=== PATIENT | female | born 1965 | race Caucasian/White ===

== ENCOUNTER → 2016-12-29 | Outpatient (CLI) | payer OTHER ==
--- NOTE | 2017-01-01 07:37 | BD ---
EXAMINATION TYPE: MG DEXA axial skeleton. DATE OF EXAM: 12/29/2016 4:09 PM COMPARISON: NONE CLINICAL HISTORY: Height: 66 Weight: 227.1 FRAX RISK QUESTIONS: Alcohol (3 or more units per day): no Family History (Parent hip fracture): no Glucocorticoids (More than 3mos): no (Ex: prednisone, prednisolone, methylprednisolone, dexamethasone, and hydrocortisone). History of Fracture in Adulthood: no Secondary Osteoporosis: 1. Type 1 Diabetes: no 2. Hyperthyroidism: no 3. Menopause before 45: no 4. Malnutrition: no 5. Chronic liver disease: no Rheumatoid Arthritis: no Current Tobacco Use: no RISK FACTORS HISTORY OF: Surgery to Spine/Hip(right/left)/Wrist (right/left): no When: Other Fractures since Age 48: no Family History of Osteoporosis: no Active: yes Diet low in dairy products/other sources of calcium: yes Postmenopausal woman: Lost more than 2 inches in height since high school: no Frequent falls: no Adrenal Insufficiency: no MEDICATIONS: none Additional History: EXAM MEASUREMENTS: Bone mineral densitometry was performed using the NGRAIN System. Bone mineral density as measured about the Lumbar spine is: ----- L1-L4(G/cm2): 1.206 T Score Values are as follows: ----- L2: -0.8 ----- L3: -0.3 ----- L4: 2.1 ----- L1-L4: 0.2 Bone mineral density has: increased 5.9 % since study of: 06.24.2014 Bone mineral density about the R hip (g/cm2): 0.902 Bone mineral density about the L hip (g/cm2): 0.903 T Score values are as follows: -----R Neck: -1.0 -----L Neck: -1.0 -----R Intertrochanter: -1.0 -----L Intertrochanter: -1.0 Bone mineral density has: decreased-11.2 % since study of: 06.24.2014 IMPRESSION: Major osteoporotic fracture risk: 4.6% Current fracture risk: 0.2% THIS STUDY IS NORMAL. NOTE: T-SCORE=SD OF THE YOUNG ADULT MEAN.
--- NOTE | 2017-01-01 09:36 | MM ---
Reason for exam: screening (asymptomatic). Last mammogram was performed 1 year and 1 month ago. History: Patient is postmenopausal. Family history of breast cancer in sister at age 49. Reductions of both breasts, 2005. Physical Findings: A clinical breast exam by your physician is recommended on an annual basis and results should be correlated with mammographic findings. MG 3D Screening Mammo W/Cad Bilateral CC and MLO view(s) were taken. Prior study comparison: November 17, 2015, bilateral MG 3d screening mammo w/cad. January 19, 2015, right breast MG diagnostic mammo RT w CAD. There are scattered fibroglandular densities. No significant changes when compared with prior studies. ASSESSMENT: Benign, BI-RAD 2 RECOMMENDATION: Routine screening mammogram of both breasts in 1 year.
== END | disposition home or self-care (01) ==
LOC: RADMAMWWP 15:27
PROVIDERS: ATTEND Family Medicine
DX: Z12.31 Encounter for screening mammogram for malignant neoplasm of breast (principal); Z13.820 Encounter for screening for osteoporosis
CPT/HCPCS: 77080; 77063; G0202

== ENCOUNTER 2018-03-28 11:17 | Day surgery (SDC) | payer BC, OTHER ==
[2018-03-26 12:14] VITALS: BMI 40.3
[~2018-03-28 11:17] MED LIST: LACTATED RINGERS 1,000 ML IV SCH
[2018-03-28 11:51] VITALS: RESP 16; TEMP 98.8
[2018-03-28] MEDS ORDERED: LIDOCAINE 1% 20 ML VIAL (10MG/ML) FOR IV START INTRADERMA ONE (11:54)
[2018-03-28] MEDS ORDERED: PROPOFOL 10 MG/ML 20 ML VIAL IV ONE (12:08)
[2018-03-28] MEDS ORDERED: LIDOCAINE 1% INJ 10MG/ML (20 ML MDV) ONE (12:08)
--- NOTE | 2018-03-28 12:30 | P.PCN ---
Date of Procedure: 03/28/18 Procedure(s) Performed: Procedure: Total colonoscopy. Preoperative diagnosis: Screening for neoplasia. Postoperative diagnosis: Exam within normal limits. Preparation: HalfLytely prep. Sedation: Was provided by anesthesia. Brief clinical history: The patient is a 52-year-old female who is scheduled for this evaluation for screening for neoplasia age being her risk factor in addition to family history of colon cancer in her mother and finding of positive occult blood in her stools and recent rectal examination. She had a prior colonoscopy around 10 years ago. At this time, she has no abdominal complaints, bleeding or anemia. Procedure: With the patient on her left lateral decubitus position and after informed consent and adequate sedation, the perianal area was inspected and it did not show any fissures or fistulas. There were no masses felt on digital rectal examination. The Olympus CFQ 160L video colonoscope was then inserted in the rectum in the usual fashion and advanced to the cecum. No polyps or tumors were seen or any obvious diverticular disease. The mucosa appeared healthy. I retroflexed the endoscope in the rectum before the endoscope was withdrawn. Low-grade internal hemorrhoids were noted with no evidence of bleeding. The patient tolerated the procedure well. Plan: The patient was reassured. She will follow up with you as planned and I recommended repeat exam in 5 years.
[2018-03-28 12:54] VITALS: BP 121/82; PULSE 63
--- NOTE | 2018-04-01 15:58 | CDI ---
Outpatient Documentation Clarification Form Date: 04/01/18 CDS/Liquid Yeast Supervisor Name: Lesley Berger Phone: If any questions, call Adriana Becerril Extractions Technologist at [phone] Patient Name: Delicia Ball Admit Date: 03/28/18 Discharge Date: 03/28/18 ATTENTION: The [facility] Coding Staff appreciate your assistance in clarifying documentation. Please respond to the clarification below the line at the bottom and electronically sign. The [facility] Coding staff will review the response and follow-up if needed. Please note: Queries are made part of the Legal Health Record. If you have any questions, please contact the Extractions Technologist. Dear Dr. Lei, Is the occult blood in stool due to internal hemorrhoids, or other cause? Thank you for your kind consideration. MTDD
== END 2018-03-28 13:20 | disposition home or self-care (01) ==
LOC: ORWHC2ENDO 11:17
DX: Z12.11 Encounter for screening for malignant neoplasm of colon (principal); R19.5 Other fecal abnormalities; K64.8 Other hemorrhoids; Z80.0 Family history of malignant neoplasm of digestive organs; I10 Essential (primary) hypertension; K21.9 Gastro-esophageal reflux disease without esophagitis; M19.90 Unspecified osteoarthritis, unspecified site; Z78.0 Asymptomatic menopausal state; E66.9 Obesity, unspecified; Z68.41 Body mass index [BMI] 40.0-44.9, adult; Z79.899 Other long term (current) drug therapy; Z98.51 Tubal ligation status
CPT/HCPCS: J2001; J2704; G0105

== ENCOUNTER → 2022-07-28 | Outpatient (CLI) | payer BC ==
--- NOTE | 2022-08-02 15:58 | MM ---
Reason for Exam: Screening (asymptomatic). Last mammogram was performed 5 year(s) and 7 month(s) ago. Patient History: Menarche at age 12. First Full-Term at age 21. Postmenopausal. 2004, Bilateral Reduction. Sister had breast cancer, age 49. Risk Values: Tatianna 5 year model risk: 2.3%. NCI Lifetime model risk: 13.0%. Prior Study Comparison: 01/19/2015 Right Diagnostic Mammogram, [facility]. 11/17/2015 Bilateral Screening Mammogram, [facility]. 12/29/2016 Bilateral Screening Mammogram, [facility]. Tissue Density: There are scattered fibroglandular densities. Findings: Analyzed By CAD. There is no suspicious group of microcalcifications or new suspicious mass in either breast. Benign-appearing calcifications bilaterally. Right greater than left. Overall Assessment: Benign, BI-RAD 2 Management: Screening Mammogram of both breasts in 1 year. A clinical breast exam by your physician is recommended on an annual basis and results should be correlated with mammographic findings. Electronically signed and approved by: Sourav Avilez DO
== END | disposition home or self-care (01) ==
LOC: RADMAMWWP 08:30
PROVIDERS: ATTEND Family Medicine
DX: Z12.31 Encounter for screening mammogram for malignant neoplasm of breast (principal)
CPT/HCPCS: 77063; 77067

== ENCOUNTER → 2023-10-29 | Outpatient (CLI) | payer BC ==
--- NOTE | 2023-10-30 16:03 | MM ---
Reason for Exam: Screening (asymptomatic). Last mammogram was performed 1 year(s) and 3 month(s) ago. Patient History: Menarche at age 12. First Full-Term at age 21. Postmenopausal. 2004, Bilateral Reduction. Paternal aunt had breast cancer at or over age 50. Sister had breast cancer, age 49. Risk Values: Tatianna 5 year model risk: 2.4%. NCI Lifetime model risk: 12.7%. Prior Study Comparison: 11/17/2015 Bilateral Screening Mammogram, [facility]. 12/29/2016 Bilateral Screening Mammogram, [facility]. 07/28/2022 Bilateral MG 3D screening mammo w/cad, [facility]. Tissue Density: There are scattered fibroglandular densities. Findings: Analyzed By CAD. Pattern appears stable. Scattered benign punctate calcifications are present bilaterally. Benign spherical and coarse calcifications are within the anterior right breast. No significant interval changes are evident No suspicious groups of microcalcifications, spiculated or lobular masses, architectural distortion or other secondary signs of malignancy are mammographically apparent. Overall Assessment: Benign, BI-RAD 2 Management: Screening Mammogram of both breasts in 1 year. A negative mammogram report should not preclude additional follow up of suspicious palpable abnormalities. Patient should continue monthly self breast exam. A clinical breast exam by your physician is recommended on an annual basis and results should be correlated with mammographic findings. Electronically signed and approved by: Han Collins D.O. Radiologis
== END | disposition home or self-care (01) ==
LOC: RADMAMWWP 08:01
PROVIDERS: ATTEND Family Medicine
DX: Z12.31 Encounter for screening mammogram for malignant neoplasm of breast (principal); Z78.0 Asymptomatic menopausal state; Z80.3 Family history of malignant neoplasm of breast
CPT/HCPCS: 77063; 77067

== ENCOUNTER → 2024-02-26 | Outpatient (CLI) | payer BC ==
--- NOTE | 2024-02-26 19:23 | US ---
EXAMINATION TYPE: US transvaginal DATE OF EXAM: 02/26/2024 COMPARISON: 02/08/2015. 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 TECHNIQUE: Transvaginal (TV). Date of LMP: SALVAGE DETERMINER, EXAM MEASUREMENTS: Uterus: 6.9 x 4.9 x 4.2 cm Endometrial Stripe: 2.0 cm Left Ovary: 1.6 x 1.2 x 1.0 cm 1. Uterus: Anteverted Heterogenous. 2. Endometrium: Thickened and heterogenous. Possible vascular stalk with lesion = 1.5 x 1.8 x 1.5 c m 3. Right Ovary: Obscured by overlying bowel gas 4. Left Ovary: Anechoic lesion = 1.0 cm 5. Bilateral Adnexa: no free fluid 6. Posterior cul-de-sac: no free fluid IMPRESSION: Thickened endometrium more than would be expected for a patient of postmenopausal status. Decreased v isualization recommended to exclude endometrial carcinoma.
== END | disposition home or self-care (01) ==
LOC: RADUSWWP 15:39
PROVIDERS: ATTEND Family Medicine
DX: R93.89 Abnormal findings on diagnostic imaging of other specified body structures (principal); N95.0 Postmenopausal bleeding; Z78.0 Asymptomatic menopausal state
CPT/HCPCS: 76830

== ENCOUNTER → 2024-03-28 | Outpatient (CLI) | payer BC ==
[2024-03-29 02:40] LABS: Basophils # (A) 0.06 X 10*3/uL (0.00-0.10); Basophils % (A) 0.7 %; Eosinophils % (A) 1.2 %; HCT 42.9 % (37.2-46.3); HGB 13.5 g/dL (12.0-15.0); Lymphocytes # (A) 2.91 X 10*3/uL (0.90-5.00); Lymphocytes % (A) 34.8 %; MCH 29.3 pg (27.0-32.0); MCHC 31.5 g/dL (32.0-37.0); MCV 93.3 FL (80.0-97.0); Mean Platelet Volume 10.6 FL (9.5-12.2); Monocytes # (A) 0.53 X 10*3/uL (0.20-1.00); Monocytes % (A) 6.3 %; NRBC Per 100 WBC 0 X 10*3/uL (0.00-0.01); Neutrophils # (A) 4.74 X 10*3/uL (1.80-7.70); Neutrophils % (A) 56.8 %; Platelet Count 379 X 10*3/uL (140-440); RDW 13.5 % (11.5-14.5); WBC 8.36 X 10*3/uL (4.50-10.00)
== END | disposition home or self-care (01) ==
LOC: LABWHC1 15:52
PROVIDERS: ATTEND Obstetrics & Gynecology
DX: Z01.818 Encounter for other preprocedural examination (principal); R94.31 Abnormal electrocardiogram [ECG] [EKG]; N85.01 Benign endometrial hyperplasia; N95.0 Postmenopausal bleeding; I10 Essential (primary) hypertension
CPT/HCPCS: 36415; 85025; 93005

== ENCOUNTER 2024-04-25 06:02 | Day surgery (SDC) | payer BC ==
--- NOTE | 2024-04-24 09:59 | P.HPIHPCON ---
History of Present Illness H&P Date: 04/24/24 Chief Complaint: Postmenopausal bleeding Ms. Ball is a 58 year old who presents with post-menopausal bleeding. The bleeding began 3-4 months ago and at times can be heavy requiring up to 4 pads per day. Pelvic US in February 2024 showed an anteverted uterus 6.9 x 4.9 x 4.2 cm with a thickened endometrial stripe measuring 20mm. A vascular polyp 1.8cm was noted. Consent for Procedure: I have explained the operation/procedure to the patient, including the risks, benefits, side effects, alternative therapies (including not receiving the proposed treatment or service), the likelihood of the patient achieving his/her goals, and potential recuperation problems for the procedure/sedation/analgesia, as well as any blood products, if indicated. I also explained to the patient the risks, benefits and side effects of the alternatives, as well as the risks related to not receiving the proposed procedure, care, treatment, or services. Past Medical History Past Medical History: GERD/Reflux, Hypertension, Osteoarthritis (OA) Additional Past Medical History / Comment(s): ARTHRITIS BACK PAIN, HEMORRHOIDS. History of Any Multi-Drug Resistant Organisms: None Reported Past Surgical History: Breast Surgery, Tubal Ligation Additional Past Surgical History / Comment(s): HEEL SPUR, BREAST REDUCTION. reji cataracts removed Past Anesthesia/Blood Transfusion Reactions: No Reported Reaction Smoking Status: Never smoker - Past Family History Mother Family Medical History: Cancer Additional Family Medical History / Comment(s): FROM COLON CANCER Father Family Medical History: Cancer Additional Family Medical History / Comment(s): LUNG CANCER Sister(s) Family Medical History: Cancer Additional Family Medical History / Comment(s): BREAST CANCER Medications and Allergies Home Medications Medication Instructions Recorded Confirmed Type Fexofenadine HCl [Renetta Allergy] 180 mg PO DAILY PRN 04/22/24 04/22/24 History Ibuprofen (Unk) 1 - 2 tab PO Q6H PRN 04/22/24 04/22/24 History Metoprolol Succinate (ER) [Toprol 25 mg PO BID 04/22/24 04/22/24 History Xl] [place] 3 (Unk) 1 tab PO DAILY 04/22/24 04/22/24 History Vit B12 (Unk) 1 tab PO DAILY 04/22/24 04/22/24 History Allergies Allergy/AdvReac Type Severity Reaction Status Date / Time No Known Allergies Allergy Verified 04/22/24 14:01 Surgical - Exam Focused physical exam is performed. This is a pleasant, healthy-appearing female. Breathing is non-labored. Abdomen is soft, non-tender. Extremities are non-edematous and non-tender. Assessment and Plan Assessment: 58 year old with postmenopausal bleeding and suspected polyp on US presenting for surgical management Plan: Risks, benefits, and alternatives to Hysteroscopy D&C, Polypectomy with Myosure device are discussed with the patient including risk of bleeding, infection, uterine perforation, and damage to surrounding structures. The patient understands these risks and desires to proceed with surgery as discussed. All questions answered. Time with Patient: Less than 30
[~2024-04-25 06:02] MED LIST changes: +DEXAMETHASONE SOD PHOSPHATE 4 MG/ML 1 ML VIAL IV ONE; -LACTATED RINGERS 1,000 ML IV SCH; +LIDOCAINE 1% (10MG/ML) FOR IV START INTRADERMA PRN; +Pre Op ABX Message 1 EACH MISC MISCELLANE ONE
[2024-04-25] MEDS: IV FLUID CONTINUATION 1,000 ML IV ONE (06:38)
[2024-04-25] MEDS: LACTATED RINGERS 1,000 ML IV SCH (06:42)
[2024-04-25] MEDS ORDERED: HYDROmorphone 0.5 MG/0.5 ML SYRINGE IVP PRN (07:00)
[2024-04-25] MEDS ORDERED: fentaNYL (PF) 50 MCG/ML 2 ML AMP IV PRN (07:00)
[2024-04-25] MEDS ORDERED: MIDAZOLAM 2 MG/2 ML VIAL IV PRN (07:00)
[2024-04-25] MEDS: ONDANSETRON 4 MG/2 ML VIAL IVP STA (07:07)
[2024-04-25] MEDS: DEXAMETHASONE SOD PHOSPHATE 4 MG/ML 1 ML VIAL IV ONE (07:07)
[2024-04-25] MEDS ORDERED: PROPOFOL 10 MG/ML 20 ML VIAL IV ONE (07:25)
[2024-04-25] MEDS ORDERED: PHENYLEPHRINE-0.9% NACL SYG 1,000 MCG/10 ML SYRINGE ONE (07:25)
[2024-04-25] MEDS ORDERED: GLYCOPYRROLATE 0.2 MG/ML 2 ML VIAL ONE (07:25)
[2024-04-25] MEDS ORDERED: LIDOCAINE 1% INJ 10MG/ML (20 ML MDV) ONE (07:25)
[2024-04-25] MEDS ORDERED: MIDAZOLAM 2 MG/2 ML VIAL ONE (07:25)
[2024-04-25] MEDS ORDERED: KETOROLAC 15 MG/ML 1 ML VIAL ONE (07:25)
[2024-04-25] MEDS ORDERED: fentaNYL (PF) 50 MCG/ML 2 ML AMP ONE (07:25)
[2024-04-25] MEDS ORDERED: SUCCINYLCHOLINE CHLORIDE 200 MG/10 ML VIAL IV ONE (07:25)
--- NOTE | 2024-04-25 08:15 | P.OP ---
Date of Procedure: 04/25/24 Preoperative Diagnosis: 1. Postmenopausal bleeding 2. Thickened endometrium on ultrasound Postoperative Diagnosis: Same Procedure(s) Performed: Hysteroscopy D&C, Myosure Implants: None Anesthesia: SANTHOSHA Surgeon: Rona Santiago Estimated Blood Loss (ml): 5 IV fluids (ml): 500 Urine output (ml): 25 Pathology: other (endometrial curettings) Condition: stable Disposition: same day Indications for Procedure: 58 year old with postmenopausal bleeding and thickened, vascular endometrium to 20mm on US. Risks, benefits, and alternatives to Hysteroscopy D&C, Polypectomy with Myosure device are discussed with the patient including risk of bleeding, infection, uterine perforation, and damage to surrounding structures. The patient understands these risks and desires to proceed with surgery as discussed. All questions answered. Operative Findings: Diffusely, abnormally thickened and vascular endometrium suspicious for endometrial cancer. [place] unable to be visualized. Description of Procedure: Patient is brought to the operating suite and placed in the dorsal lithotomy position. The cervix perineum and lower abdomen are prepped and draped in the usual sterile fashion. Examination under anesthesia reveals an anteverted uterus. Adnexa are negative bilaterally. The bladder is drained for approximately 25 mL of clear yellow urine. The anterior lip of the cervix is grasped with a double toothed tenaculum after the weighted speculum is placed into the vagina. The uterus sounds to a depth of 10 cm in the anteverted position. The Hanks dilators are placed and the cervix was dilated to 12 mm. The hysteroscope was then introduced and with saline infusion the cavity is distended. Abnormally thickened and vascular endometrium is noted diffusely throughout the cavitiy. The MyoSure reach is fed through the hysteroscopy and used to take a global sampling of this tissue under direct visualization. The hysteroscopy is then removed. All sponge needle and instrument counts are correct. Instrumentation is removed from the vagina and the patient is brought to the recovery room in stable condition. Toradol is given prior to leaving the operative suite.Patient will follow up with me in the office in 2 weeks. Verbal and written instructions are provided.
[2024-04-25 08:23] VITALS: TEMP 97
[2024-04-25 09:48] VITALS: BP 133/65; PULSE 61; RESP 18
== END 2024-04-25 10:32 | disposition home or self-care (01) ==
LOC: OR 06:02
PROVIDERS: ATTEND Obstetrics & Gynecology
DX: N85.00 Endometrial hyperplasia, unspecified (principal); I96 Gangrene, not elsewhere classified; M19.90 Unspecified osteoarthritis, unspecified site; K21.9 Gastro-esophageal reflux disease without esophagitis; I10 Essential (primary) hypertension; Z80.0 Family history of malignant neoplasm of digestive organs; Z87.19 Personal history of other diseases of the digestive system; Z98.51 Tubal ligation status; Z79.899 Other long term (current) drug therapy
CPT/HCPCS: 88305; 58558; J2250; J0330; J1100; J2405; J2001; J3010; J1885; J2704; J2371

== ENCOUNTER → 2024-05-14 | Outpatient (CLI) | payer BC ==
--- NOTE | 2024-05-14 12:14 | CT ---
EXAMINATION TYPE: CT ChestAbdPelvis w con DATE OF EXAM: 05/14/2024 COMPARISON: None HISTORY: 58-year-old female C5 4.1 enlarged uterus, bleeding, cramping since 01/25/2024 TECHNIQUE: Contiguous axial scanning of the chest, abdomen, and pelvis performed with IV Contrast, pa tient injected with 100 mL of Isovue 300. Delayed images through the kidneys were obtained. Coronal/s agittal reconstructions performed. CT DLP: 1936 mGycm Automated exposure control for dose reduction was used. FINDINGS: Chest: Heart borderline in size without pericardial effusion. Borderline ectatic ascending aorta 3.5 cm. Conventional arch vessel branching anatomy. Ectatic upper descending thoracic aorta 3.2 cm. Borderline to mildly enlarged caliber main right and left pulmonary arteries up to 2.7 cm may reflect underlying pulmonary arterial hypertension. No thoracic lymphadenopathy by CT size criteria. Hazy dependent atelectasis in the lungs. No consolidation or pleural effusion. Mild diffuse bronchial wall thickening could reflect bronchitis or asthma. ABDOMEN: Tiny hiatal hernia. Liver borderline enlarged at 17.4 cm. There may be mild fatty infiltration. No biliary ductal dilatat ion. Portal venous system is patent. No focal liver lesion. Gallbladder, adrenal glands, right kidney, spleen, and pancreas within normal limits. There is a 1.4 cm cortical cyst anterior left kidney. And circumaortic left renal vein. No dilated small bowel, free fluid, or free air. Small retroperitoneal nodes measuring up to 8 mm are nonspecific, probably reactive. No mesenteric adenopathy. Mild stool burden. Normal appendix. No pericolonic inflammatory change. Pelvis: Bladder urine distended. Uterus anteverted. . Rounded heterogeneous mass centered within the uterus measuring up to 6.7 cm. Ovaries are visualized. Prominent but nonenlarged 9 mm right external iliac chain lymph node, axial image 95. Mildly enlarged 1.2 cm lymph node left internal iliac chain, axial image 98. Bones: Mild degenerative change of the hips. Moderate degenerative disc disease and facet arthropathy lower lumbar spine especially L4-L5. Some bridging anterior endplate spondylosis midthoracic spine. No oss eous destructive process. IMPRESSION: 1. LARGE HETEROGENEOUS MASS CENTERED WITHIN THE UTERINE CAVITY MEASURING UP TO 6.7 CM suggestive of e ndometrial carcinoma. 2. Nonspecific 1.2 cm, mildly enlarged left internal iliac chain lymph node. Equivocal between a reac tive versus metastatic node. Otherwise, no suspicious lymphadenopathy or evidence for metastatic dise ase elsewhere on the scan.
== END | disposition home or self-care (01) ==
LOC: RADCTMAIN 09:38
PROVIDERS: ATTEND Obstetrics & Gynecology
DX: C54.1 Malignant neoplasm of endometrium (principal); R59.9 Enlarged lymph nodes, unspecified
CPT/HCPCS: 71260; 74177; Q9967

== ENCOUNTER 2024-06-25 18:50 | Emergency (ER) | payer BC ==
[~2024-06-25 18:50] MED LIST changes: -DEXAMETHASONE SOD PHOSPHATE 4 MG/ML 1 ML VIAL IV ONE; -LIDOCAINE 1% (10MG/ML) FOR IV START INTRADERMA PRN; -Pre Op ABX Message 1 EACH MISC MISCELLANE ONE; +SODIUM CHLORIDE 0.9% 1,000 ML BAG ONE
[2024-06-25] MEDS ORDERED: HYDROmorphone 1 MG/ML 1 ML SYRINGE ONE (20:59)
[2024-06-25] MEDS ORDERED: ONDANSETRON 4 MG/2 ML VIAL ONE (22:34)
== END 2024-06-25 22:29 | disposition home or self-care (01) ==
LOC: EC 18:50
DX: N93.9 Abnormal uterine and vaginal bleeding, unspecified (principal); D64.9 Anemia, unspecified
CPT/HCPCS: 86900; 86901; 80053; 83735; 84100; 85025; 85610; 85730; 86850; 99284; J2405; J1170

== ENCOUNTER 2024-07-20 06:42 | Inpatient (IN) | payer BC ==
[2024-07-20 07:24] LABS: Anisocytosis Slight; Basophils # (A) 0.1 k/uL (0-0.2); Basophils % (A) 0 %; Eosinophils % (A) 0 %; HCT 35.2 % (34.0-46.0); HGB 11.4 gm/dL (11.4-16.0); Hypochromasia Moderate; Lymphocytes # (A) 0.9 k/uL (1.0-4.8); Lymphocytes % (A) 7 %; MCH 29.3 pg (25.0-35.0); MCHC 32.4 g/dL (31.0-37.0); MCV 90.4 fL (80.0-100.0); Monocytes # (A) 0.5 k/uL (0-1.0); Monocytes % (A) 4 %; Neutrophils # (A) 11.4 k/uL (1.3-7.7); Neutrophils % (A) 87 %; Platelet Count 450 k/uL (150-450); RBC 3.89 m/uL (3.80-5.40); RDW 17.7 % (11.5-15.5)
[2024-07-20] MEDS: SODIUM CHLORIDE 0.9% 1,000 ML IV STA ×2 (07:31→08:36)
[2024-07-20] MEDS: DILTIAZEM DRIP BOLUS FROM BAG 1 MG SOLN IV ONE (07:32)
[2024-07-20] MEDS: DILTIAZEM 125 MG in SODIUM CHLORIDE 0.9% 100 ML IV SCH (07:35)
[2024-07-20 07:36] LABS: ALT 19 U/L (4-34); AST 43 U/L (14-36); African American GFR (CKD) 58 (>60 ml/min/1.73 sqM); Albumin 3.2 g/dL (3.5-5.0); Alkaline Phosphatase 106 U/L (38-126); Anion Gap 7 mmol/L; Blood Urea Nitrogen 25 mg/dL (7-17); Calcium 9.1 mg/dL (8.4-10.2); Carbon Dioxide 27 mmol/L (22-30); Chloride 94 mmol/L (98-107); Glucose 165 mg/dL (74-99); Magnesium 1.9 mg/dL (1.6-2.3); Non-African American GFR(CKD) 50 (>60 ml/min/1.73 sqM); Potassium 4.7 mmol/L (3.5-5.1); Sodium 128 mmol/L (137-145); Total Bilirubin 0.5 mg/dL (0.2-1.3); Total Protein 5.8 g/dL (6.3-8.2)
--- NOTE | 2024-07-20 07:38 | ED ---
General Adult HPI - General Chief complaint: Shortness of Breath Stated complaint: SOB Time Seen by Provider: 07/20/24 07:09 Source: patient, EMS Mode of arrival: EMS - History of Present Illness Initial comments: Dictation was produced using [employer] dictation software. please excuse any grammatical, word or spelling errors. Chief Complaint: 58-year-old female presents to the emergency department with generalized weakness History of Present Illness: Patient 58-year-old female presents to the emergency department generalized weakness. Patient has active uterine cancer being treated with chemotherapy. She last had chemotherapy 2 weeks ago. Patient was recently diagnosed with pulmonary embolism hard due to bleeding issues she was taken off anticoagulation medication and IVC filter was placed. She had been admitted to our facility along with [facility] in the recent past. Denies any cough. She does feel short of breath. Patient denies any history of A-fib. Denies any pain complaints. Denies any constitutional symptoms. States that she is feeling okay last night. The ROS documented in this emergency department record has been reviewed and confirmed by me. Those systems with pertinent positive or negative responses have been documented in the HPI. All other systems are other negative and/or noncontributory. - Related Data Home Medications Medication Instructions Recorded Confirmed Acetaminophen Tab [Tylenol Tab] 500 mg PO Q6H PRN 07/20/24 07/20/24 HYDROmorphone [Dilaudid] 4 mg PO Q4H PRN 07/20/24 07/20/24 Metoclopramide [Reglan] 10 mg PO TID 07/20/24 07/20/24 Metoprolol Succinate (ER) [Toprol 50 mg PO DAILY 07/20/24 07/20/24 Xl] Morphine Sulfate ER [Ms Contin] 30 mg PO Q12HR 07/20/24 07/20/24 Ondansetron [Zofran] 4 mg PO HS PRN 07/20/24 07/20/24 Ondansetron [Zofran] 4 mg PO TID 07/20/24 07/20/24 Pantoprazole [Protonix] 40 mg PO DAILY 07/20/24 07/20/24 Sennosides [Senokot] 17.2 mg PO HS 07/20/24 07/20/24 dronabinoL [Marinol] 5 mg PO BID 07/20/24 07/20/24 polyethylene glycoL 3350 [Miralax] 17 gm PO BID 07/20/24 07/20/24 Allergies Allergy/AdvReac Type Severity Reaction Status Date / Time No Known Allergies Allergy Verified 07/20/24 10:14 Review of Systems ROS Statement: Those systems with pertinent positive or pertinent negative responses have been documented in the HPI. ROS Other: All systems not noted in ROS Statement are negative. Past Medical History Past Medical History: GERD/Reflux, Hypertension, Osteoarthritis (OA) Additional Past Medical History / Comment(s): ARTHRITIS BACK PAIN, HEMORRHOIDS. History of Any Multi-Drug Resistant Organisms: None Reported Past Surgical History: Tubal Ligation Additional Past Surgical History / Comment(s): HEEL SPUR, BREAST REDUCTION. Past Anesthesia/Blood Transfusion Reactions: No Reported Reaction Past Psychological History: No Psychological Hx Reported Smoking Status: Never smoker Past Alcohol Use History: None Reported Past Drug Use History: None Reported - Past Family History Mother Family Medical History: Cancer Additional Family Medical History / Comment(s): FROM COLON CANCER Father Family Medical History: Cancer Additional Family Medical History / Comment(s): LUNG CANCER Sister(s) Family Medical History: Cancer Additional Family Medical History / Comment(s): BREAST CANCER General Exam - General Exam Comments Initial Comments: PHYSICAL EXAM: General Impression: Alert and oriented x3, not in acute distress HEENT: Normocephalic atraumatic, extra-ocular movements intact, pupils equal and reactive to light bilaterally, mucous membranes moist. Cardiovascular: Heart regular rate and rhythm Chest: Able to complete full sentences, no retractions, no tachypnea Abdomen: abdomen soft, non-tender, non-distended, no organomegaly Musculoskeletal: Pulses present and equal in all extremities, no peripheral edema Motor: no focal deficits noted Neurological: CN II-XII grossly intact, no focal motor or sensory deficits noted Skin: Intact with no visualized rashes Psych: Normal affect and mood Course Vital Signs 07/20/24 07/20/24 07/20/24 06:43 07:05 07:25 Temperature 97.7 F 97.6 F Pulse Rate 150 H 172 H 140 H Respiratory 19 18 Rate Blood Pressure 107/62 79/53 110/75 O2 Sat by Pulse 93 L 99 Oximetry 07/20/24 07/20/24 07/20/24 07:30 07:35 07:40 Temperature Pulse Rate 135 H 128 H Respiratory 18 20 Rate Blood Pressure 100/77 104/70 99/75 O2 Sat by Pulse 99 98 Oximetry 07/20/24 07/20/24 07/20/24 08:01 08:40 09:20 Temperature Pulse Rate 121 H 120 H 115 H Respiratory 16 18 18 Rate Blood Pressure 115/83 132/91 120/91 O2 Sat by Pulse 99 100 100 Oximetry 07/20/24 07/20/24 07/20/24 09:34 09:50 10:03 Temperature 98.3 F Pulse Rate 114 H 89 89 Respiratory 18 16 Rate Blood Pressure 127/94 124/88 O2 Sat by Pulse 100 99 Oximetry Medical Decision Making - Medical Decision Making Was pt. sent in by a medical professional or institution (, PA, PEER FINANCIAL COUNSELOR, urgent care, hospital, or care home...) When possible be specific @ -No Did you speak to anyone other than the patient for history (EMS, parent, family, police, friend...)? What history was obtained from this source @ -No Did you review nursing and triage notes (agree or disagree)? Why? @ -I reviewed and agree with nursing and triage notes Were old charts reviewed (outside hosp., previous admission, EMS record, old EKG, old radiological studies, urgent care reports/EKG's, care home records)? Report findings @ -Charting was reviewed show that in April 2024 patient had hysteroscopy Differential Diagnosis (chest pain, altered mental status, abdominal pain women, abdominal pain men, vaginal bleeding, musculoskeletal, weakness, fever, dyspnea, syncope, headache, dizziness, GI bleed, back pain, seizure, CVA, palpatations, mental health)? @ -Differential Weakness: Hypoglycemia, shock, sepsis, hyponatremia, anemia, infection, [place], ETOH, adverse medicine reaction, overdose, stroke, this is not meant to be an all-inclusive list. EKG interpreted by me (3pts min.). @ -As above. EKG suspicious for new onset A-fib X-rays interpreted by me (1pt min.). @ -Chest x-ray is nonacute CT interpreted by me (1pt min.). @ -None done U/S interpreted by me (1pt. min.). @ -None done What testing was considered but not performed or refused? (CT, X-rays, U/S, labs)? Why? @ -None What meds were considered but not given or refused? Why? @ -None Was smoking cessation discussed for >3mins.? @ -No Were there social determinants of health that impacted care today? How? (H omelessness, low income, unemployed, alcoholism, drug addiction, transportation, low edu. Level, literacy, decrease access to med. care, long term, rehab)? @ -None Was there de-escalation of care discussed even if they declined (Discuss DNR or withdrawal of care, Hospice)? DNR status @ -No What co-morbidities impacted this encounter? (DM, HTN, Smoking, COPD, CAD, Cancer, CVA, ARF, Chemo, Hep., AIDS, mental health diagnosis, sleep apnea, morbid obesity)? @ -Bleeding disorder, history of cancer Was patient admitted / discharged? Hospital course, mention meds given and route, prescriptions, significant lab abnormalities, going to OR and other pertinent info. @ -58-year-old female presents to the emergency department for chief complaint of shortness of breath weakness. Patient reports that she is currently being treated for pulmonary embolism. She had complications with bleeding disorder an d was taken off anticoagulation medications and IVC filter was placed. Vital signs upon arrival shows tachycardia. Initial court recording monitor showed irregular tachycardic rate. Suspicious for A-fib with RVR. Patient also had borderline low blood pressures. Patient given IV fluids and started on low-dose exam. Evaluation obtained. CBC, coag panel is unremarkable. Metabolic panel shows send 128 with elevated renal function lactic acidosis 2.7. Patient clinical presentation suspicious for dehydration. Patient given 2 L of normal saline with significant improvement of blood pressure along with heart rate. Patient's court recording monitor reviewed at 10:21 AM patient found to be in normal sinus rhythm with normal blood pressures. Reevaluated bedside 10:22 AM found to be in stable condition. Patient states she feels better after IV fluids. Patient will be admitted with consultation to cardiology. Case discussed with hospitalist for admission Did you discuss the management of the patient with other professionals (professionals i.e. , PA, PEER FINANCIAL COUNSELOR, lab, RT, psych nurse, professor of social work, phosphorus processing supervisor, teacher, strike operations officer, senior case manager)? Give summary @ -see above Was critical care preformed (if so, how long)? @ -Yes, 77 minutes for magement of hypotension and new onset A-fib with RVR Undiagnosed new problem with uncertain prognosis? @ -No Drug Therapy requiring intensive monitoring for toxicity (Heparin, Nitro, Insulin, Cardizem)? @ -No Were any procedures done? @ -No Diagnosis/symptom? Acute, or Chronic, or Acute on Chronic? Uncomplicated (without systemic symptoms) or Complicated (systemic symptoms)? @ -Dehydration complicated by tachydysrhythmia Side effects of treatment? @ -No Exacerbation, Progression, or Severe Exacerbation? @ -No Poses a threat to life or bodily function? How? (Chest pain, [place], [place], pneumonia, PE, COPD, DKA, ARF, appy, cholecystitis, CVA, Diverticulitis, Homicidal, Suicidal, threat to staff... and all critical care pts) @ -yes - Lab Data Result diagrams: 07/20/24 07:03 07/20/24 07:03 Lab Results 07/20/24 07/20/24 07/20/24 Range/Units 07:03 07:03 07:03 WBC 13.0 H (3.8-10.6) k/uL RBC 3.89 (3.80-5.40) m/uL Hgb 11.4 (11.4-16.0) gm/dL Hct 35.2 (34.0-46.0) % MCV 90.4 (80.0-100.0) fL MCH 29.3 (25.0-35.0) pg MCHC 32.4 (31.0-37.0) g/dL RDW 17.7 H (11.5-15.5) % Plt Count 450 (150-450) k/uL MPV 8.0 Neutrophils % 87 % Lymphocytes % 7 % Monocytes % 4 % Eosinophils % 0 % Basophils % 0 % Neutrophils # 11.4 H (1.3-7.7) k/uL Lymphocytes # 0.9 L (1.0-4.8) k/uL Monocytes # 0.5 (0-1.0) k/uL Eosinophils # 0.0 (0-0.7) k/uL Basophils # 0.1 (0-0.2) k/uL Hypochromasia Moderate Anisocytosis Slight PT 11.7 (10.0-12.5) sec INR 1.1 (<1.2) APTT 21.8 L (22.0-30.0) sec Sodium 128 L (137-145) mmol/L Potassium 4.7 (3.5-5.1) mmol/L Chloride 94 L (98-107) mmol/L Carbon Dioxide 27 (22-30) mmol/L Anion Gap 7 mmol/L BUN 25 H (7-17) mg/dL Creatinine 1.18 H (0.52-1.04) mg/dL Est GFR (CKD-EPI)AfAm 58 (>60 ml/min/1.73 sqM) Est GFR (CKD-EPI)NonAf 50 (>60 ml/min/1.73 sqM) Glucose 165 H (74-99) mg/dL Plasma Lactic Acid Rodrigo (0.7-2.0) mmol/L Calcium 9.1 (8.4-10.2) mg/dL Magnesium 1.9 (1.6-2.3) mg/dL Total Bilirubin 0.5 (0.2-1.3) mg/dL AST 43 H (14-36) U/L ALT 19 (4-34) U/L Alkaline Phosphatase 106 (38-126) U/L Troponin I (0.000-0.034) ng/mL Total Protein 5.8 L (6.3-8.2) g/dL Albumin 3.2 L (3.5-5.0) g/dL TSH 5.270 H (0.465-4.680) mIU/L 07/20/24 07/20/24 Range/Units 07:03 07:59 WBC (3.8-10.6) k/uL RBC (3.80-5.40) m/uL Hgb (11.4-16.0) gm/dL Hct (34.0-46.0) % MCV (80.0-100.0) fL MCH (25.0-35.0) pg MCHC (31.0-37.0) g/dL RDW (11.5-15.5) % Plt Count (150-450) k/uL MPV Neutrophils % % Lymphocytes % % Monocytes % % Eosinophils % % Basophils % % Neutrophils # (1.3-7.7) k/uL Lymphocytes # (1.0-4.8) k/uL Monocytes # (0-1.0) k/uL Eosinophils # (0-0.7) k/uL Basophils # (0-0.2) k/uL Hypochromasia Anisocytosis PT (10.0-12.5) sec INR (<1.2) APTT (22.0-30.0) sec Sodium (137-145) mmol/L Potassium (3.5-5.1) mmol/L Chloride (98-107) mmol/L Carbon Dioxide (22-30) mmol/L Anion Gap mmol/L BUN (7-17) mg/dL Creatinine (0.52-1.04) mg/dL Est GFR (CKD-EPI)AfAm (>60 ml/min/1.73 sqM) Est GFR (CKD-EPI)NonAf (>60 ml/min/1.73 sqM) Glucose (74-99) mg/dL Plasma Lactic Acid Rodrigo 2.7 H* (0.7-2.0) mmol/L Calcium (8.4-10.2) mg/dL Magnesium (1.6-2.3) mg/dL Total Bilirubin (0.2-1.3) mg/dL AST (14-36) U/L ALT (4-34) U/L Alkaline Phosphatase (38-126) U/L Troponin I <0.012 (0.000-0.034) ng/mL Total Protein (6.3-8.2) g/dL Albumin (3.5-5.0) g/dL TSH (0.465-4.680) mIU/L Disposition Clinical Impression: Dehydration Disposition: ADMITTED IP TO THIS HOSP Condition: Fair Referrals: Marline Jim DO [Primary Care Provider] - 1-2 days Decision Time: 10:23
--- NOTE | 2024-07-20 07:38 | XR ---
EXAMINATION TYPE: XR chest 2V DATE OF EXAM: 07/20/2024 COMPARISON: None INDICATION: Dysrhythmia, short of breath TECHNIQUE: Frontal and lateral views of the chest are obtained. FINDINGS: The heart size is normal. The pulmonary vasculature is normal. Linear opacities in the left midlung. Correlate for atelectasis. Small posterior pleural effusions ar e present.. IMPRESSION: 1. Small linear opacity left lung base. Correlate for atelectasis or early pneumonia. 2. Small posterior pleural effusions
[2024-07-20 07:45] LABS: INR 1.1 (<1.2); Partial Thromboplastin Time 21.8 sec (22.0-30.0); Prothrombin Time 11.7 sec (10.0-12.5)
[2024-07-20] MEDS: MORPHINE SULFATE 4 MG/ML SYRINGE IV STA (09:35)
[2024-07-20] MEDS ORDERED: NALOXONE 0.4 MG/ML 1 ML VIAL IV PRN (10:17)
[2024-07-20] MEDS: SODIUM CHLORIDE 0.9% 1,000 ML IV SCH (10:24)
[2024-07-20] MEDS ORDERED: ACETAMINOPHEN TAB 500 MG TAB PO PRN (14:34)
[2024-07-20] MEDS ORDERED: HYDROmorphone 2 MG TAB PO PRN (15:25)
[2024-07-20] MEDS: METOPROLOL SUCCINATE (ER) 50 MG TAB.ER.24H PO SCH (16:02)
[2024-07-20] MEDS: MORPHINE SULFATE ER 30 MG TABLET PO SCH (16:09)
[2024-07-20] MEDS: droNABinol 2.5 MG CAP PO SCH (20:05)
[2024-07-20] MEDS: SENNOSIDES 8.6 MG TAB PO SCH (20:05)
[2024-07-20] MEDS ORDERED: MORPHINE SULFATE ER 30 MG TABLET PO SCH (21:00)
--- NOTE | 2024-07-20 21:49 | P.HPIM ---
History of Present Illness H&P Date: 07/20/24 Chief Complaint: Generalized weakness Patient is a 58-year-old female with a past medical history of uterine cancer currently undergoing chemotherapy. 3 weeks for past 9 weeks., Hypertension, GERD and osteoarthritis presents to ER with complaints of generalized weakness and shortness of breath started this morning. Patient was recently diagnosed with pulmonary embolism. Due to vaginal bleeding patient underwent radiation therapy. Patient was not on anticoagulation due to bleeding and is status post IVC filter placement at [facility]. Otherwise denied any complaints of chest pain. No nausea vomiting. No dizziness or lightheadedness. Denied any palpitations. Apparently patient has not been having much appetite and was placed on Marinol. Yesterday she also took Pedialyte due to dehydration. Denied any fever or chills. No cough or sputum production. In the ER EKG showed atrial fibrillation/flutter with rapid ventricular response and heart rate went up to 150s. Chest x-ray showed small linear opacity left lung base. Correlate for atelectasis or early pneumonia. Small posterior pleural effusions. Laboratory data showed WBC 13.0 hemoglobin 11.4 and platelets 450 sodium 128 potassium 4.7 chloride 94 bicarb is 27 BUN 25 and creatinine 1.18 and blood sugar 165 lactic acid 2.7 AST 43 ALT 19 alk phos 106 and troponin x 1 negative albumin 3.2 TSH 5.27 and free T4 level is 1.98. Patient was started on Cardizem drip in the ER. Review of Systems Constitutional: Patient denies any fever or chills . Generalized weakness, fatigue and loss of appetite Abdomen: Patient denied nausea vomiting and diarrhea and abdominal pain. Cardiovascular: Patient denies any chest pain. Patient does have short of breath no palpitations. Positive for leg swelling Respiratory: patient denied any cough or sputum production. Positive for shortness of breath Neurologic: Patient denied any numbness or tingling. no headache. Musculoskeletal: Patient denies any complaints of joint swelling or deformity. Skin: Negative Psychiatric: Negative Endocrine: No heat or cold intolerance. No recent weight gain. Genitourinary: No dysuria or hematuria. All other 14 point ROS negative except the above Past Medical History Past Medical History: GERD/Reflux, Hypertension, Osteoarthritis (OA) Additional Past Medical History / Comment(s): ARTHRITIS BACK PAIN, HEMORRHOIDS. History of Any Multi-Drug Resistant Organisms: None Reported Past Surgical History: Tubal Ligation Additional Past Surgical History / Comment(s): HEEL SPUR, BREAST REDUCTION. Past Anesthesia/Blood Transfusion Reactions: No Reported Reaction Past Psychological History: No Psychological Hx Reported Smoking Status: Never smoker Past Alcohol Use History: None Reported Past Drug Use History: None Reported - Past Family History Mother Family Medical History: Cancer Additional Family Medical History / Comment(s): FROM COLON CANCER Father Family Medical History: Cancer Additional Family Medical History / Comment(s): LUNG CANCER Sister(s) Family Medical History: Cancer Additional Family Medical History / Comment(s): BREAST CANCER Medications and Allergies Home Medications Medication Instructions Recorded Confirmed Type Acetaminophen Tab [Tylenol Tab] 500 mg PO Q6H PRN 07/20/24 07/20/24 History HYDROmorphone [Dilaudid] 4 mg PO Q4H PRN 07/20/24 07/20/24 History Metoclopramide [Reglan] 10 mg PO TID 07/20/24 07/20/24 History Metoprolol Succinate (ER) [Toprol 50 mg PO DAILY 07/20/24 07/20/24 History Xl] Morphine Sulfate ER [Ms Contin] 30 mg PO Q12HR 07/20/24 07/20/24 History Nystatin 100,000 Unit/ml Susp 5 ml PO QID 07/20/24 07/20/24 History [Mycostatin Oral Susp] Ondansetron [Zofran] 4 mg PO HS PRN 07/20/24 07/20/24 History Ondansetron [Zofran] 4 mg PO TID 07/20/24 07/20/24 History Pantoprazole [Protonix] 40 mg PO DAILY 07/20/24 07/20/24 History Sennosides [Senokot] 17.2 mg PO HS 07/20/24 07/20/24 History dronabinoL [Marinol] 5 mg PO BID 07/20/24 07/20/24 History polyethylene glycoL 3350 [Miralax] 17 gm PO BID 07/20/24 07/20/24 History Allergies Allergy/AdvReac Type Severity Reaction Status Date / Time No Known Allergies Allergy Verified 07/20/24 10:14 Physical Exam Vitals: Vital Signs Temp Pulse Resp BP Pulse Ox 07/20/24 13:45 98.2 F 109 H 16 144/96 100 07/20/24 13:05 106 H 16 129/81 99 07/20/24 12:03 98.0 F 99 14 125/92 100 07/20/24 11:20 93 18 135/89 100 07/20/24 11:02 91 16 125/75 100 07/20/24 10:30 96 18 112/91 98 07/20/24 10:03 89 16 124/88 99 07/20/24 09:50 89 07/20/24 09:34 98.3 F 114 H 18 127/94 100 07/20/24 09:20 115 H 18 120/91 100 07/20/24 08:40 120 H 18 132/91 100 07/20/24 08:01 121 H 16 115/83 99 07/20/24 07:40 128 H 20 99/75 98 07/20/24 07:35 104/70 07/20/24 07:30 135 H 18 100/77 99 07/20/24 07:25 97.6 F 140 H 18 110/75 99 07/20/24 07:21 07/20/24 07:20 66/27 07/20/24 07:15 86/76 07/20/24 07:05 172 H 79/53 07/20/24 06:43 97.7 F 150 H 19 107/62 93 L Intake and Output 07/19/24 07/20/24 07/20/24 22:59 06:59 14:59 Other: Weight 113.398 kg PHYSICAL EXAMINATION: Patient is lying in the bed. No acute distress, awake alert and oriented. Patient is weak and lethargic.. HEENT: Normocephalic. Neck is supple. Pupils reactive. Nostrils clear. Oral cavity is moist. Neck reveals no JVD, carotid bruits, or thyromegaly. CHEST EXAMINATION: Trachea is central. Symmetrical expansion. Bibasilar diminished sounds. No wheezing nonlabored breathing. CARDIAC: Normal S1, S2 with no gallops. No murmurs. Irregularly irregular rhythm. ABDOMEN: Soft. Bowel sounds normal. No organomegaly. No abdominal bruits. Extremities: Bilateral lower extremity 2+ edema. No clubbing or cyanosis Neurologically awake, alert, oriented x3 with well-coordinated movements. No focal deficits noted Skin: No rash or skin lesions. Psychiatric: Coperative. Nonsuicidal Musculoskeletal: No joint swelling or deformity. Normal range of motion. Results CBC & Chem 7: 07/20/24 07:03 07/20/24 07:03 Labs: Abnormal Lab Results - Last 24 Hours (Table) 07/20/24 07/20/24 07/20/24 Range/Units 07:03 07:03 07:03 WBC 13.0 H (3.8-10.6) k/uL RDW 17.7 H (11.5-15.5) % Neutrophils # 11.4 H (1.3-7.7) k/uL Lymphocytes # 0.9 L (1.0-4.8) k/uL APTT 21.8 L (22.0-30.0) sec Sodium 128 L (137-145) mmol/L Chloride 94 L (98-107) mmol/L BUN 25 H (7-17) mg/dL Creatinine 1.18 H (0.52-1.04) mg/dL Glucose 165 H (74-99) mg/dL Plasma Lactic Acid Rodrigo (0.7-2.0) mmol/L AST 43 H (14-36) U/L Total Protein 5.8 L (6.3-8.2) g/dL Albumin 3.2 L (3.5-5.0) g/dL TSH 5.270 H (0.465-4.680) mIU/L 07/20/24 Range/Units 07:59 WBC (3.8-10.6) k/uL RDW (11.5-15.5) % Neutrophils # (1.3-7.7) k/uL Lymphocytes # (1.0-4.8) k/uL APTT (22.0-30.0) sec Sodium (137-145) mmol/L Chloride (98-107) mmol/L BUN (7-17) mg/dL Creatinine (0.52-1.04) mg/dL Glucose (74-99) mg/dL Plasma Lactic Acid Rodrigo 2.7 H* (0.7-2.0) mmol/L AST (14-36) U/L Total Protein (6.3-8.2) g/dL Albumin (3.5-5.0) g/dL TSH (0.465-4.680) mIU/L Thrombosis Risk Factor Assmnt - DVT/VTE Prophylaxis DVT/VTE Prophylaxis: Pharmacologic Prophylaxis ordered Assessment and Plan Assessment: New onset atrial fibrillation/flutter with RVR Recent pulmonary embolism status post IVC filter placement. Currently not on anticoagulation due to vaginal bleeding from uterine malignancy. Patient is also status post radiation. Uterine cancer currently on chemotherapy last about 2 and half weeks ago. Next chemotherapy on Mild leukocytosis Hypovolemic hyponatremia Acute kidney injury likely prerenal Lactic acidosis due to tissue hypoperfusion Elevated TSH level with normal free T4 level. DVT prophylaxis with SCDs Plan: Patient will continue on telemonitoring. Started on Cardene drip and titrate down. Patient will be started back on home dose of Toprol-XL 50 mg daily. Currently not on anticoagulation due to recent history of bleeding. Continue gentle IV hydration and follow-up BMP. Patient was started back on pain medications including MS Contin and Dilaudid as needed. Encourage oral intake. Follow-up closely. Prognosis is guarded. Time with Patient: Greater than 30
[2024-07-21 06:32] LABS: Appearance,Urine Cloudy (Clear); Bacteria,Urine Occasional /hpf; Bilirubin,Urine Negative (Negative); Blood,Urine Large (Negative); Calcium Oxalate Crystals,Urine Occasional /hpf; Color,Urine Yellow; Glucose,Urine (UA) Negative (Negative); Hyaline Casts,Urine 14 /lpf (0-2); Ketones,Urine Negative (Negative); Leukocyte Esterase,Urine Moderate (Negative); Mucus,Urine Many /hpf; Nitrite,Urine Negative (Negative); PH, Urine 5.5 (5.0-8.0); Protein,Urine 2+ (Negative); RBC,Urine 102 /hpf (0-5); Squamous Epithelial Cell,Urine 1 /hpf (0-4); Urobilinogen,Urine <2.0 mg/dL (<2.0); WBC,Urine 127 /hpf (0-5)
[2024-07-21 08:01] LABS: Anisocytosis Slight; Basophils % (A) 0 %; Eosinophils % (A) 0 %; HCT 30.6 % (34.0-46.0); Hypochromasia Slight; Lymphocytes # (A) 0.7 k/uL (1.0-4.8); Lymphocytes % (A) 7 %; MCH 29.7 pg (25.0-35.0); MCHC 32.6 g/dL (31.0-37.0); MCV 91.2 fL (80.0-100.0); Mean Platelet Volume 8.1; Monocytes # (A) 0.4 k/uL (0-1.0); Monocytes % (A) 4 %; Neutrophils # (A) 9.4 k/uL (1.3-7.7); Neutrophils % (A) 88 %; Platelet Count 380 k/uL (150-450); RBC 3.36 m/uL (3.80-5.40); RDW 18.3 % (11.5-15.5); WBC 10.6 k/uL (3.8-10.6)
[2024-07-21] MEDS: PANTOPRAZOLE 40 MG TABLET PO SCH (08:06)
[2024-07-21 08:10] LABS: African American GFR (CKD) 55 (>60 ml/min/1.73 sqM); Anion Gap 3 mmol/L; Blood Urea Nitrogen 27 mg/dL (7-17); Calcium 8.3 mg/dL (8.4-10.2); Carbon Dioxide 24 mmol/L (22-30); Chloride 101 mmol/L (98-107); Glucose 100 mg/dL (74-99); Non-African American GFR(CKD) 48 (>60 ml/min/1.73 sqM); Potassium 4.6 mmol/L (3.5-5.1); Sodium 128 mmol/L (137-145)
--- NOTE | 2024-07-21 09:40 | P.GSCN ---
History of Present Illness Consult date: 07/21/24 Reason for Consult: Urinary retention Requesting physician: Mamadou Shin History of present illness: Patient is a 58-year-old white female diagnosed with uterine cancer earlier this year. She received a single radiation treatment to control bleeding and is now receiving chemotherapy. She was recently diagnosed with a pulmonary embolus and underwent placement of an IVC filter. She presented to the ER with dyspnea and generalized weakness. She also reports significant abdominal distention. A Buckley catheter was placed but urine output from it has been minimal. Bladder scan has shown over 400 cc. I am consulted for this reason. She states that she has been treated for UTIs in the remote past. She denies any history of urolithiasis. She has not experienced voiding difficulty. Review of Systems - Constitutional Reports weakness, Denies chills, Denies fever - Cardiovascular Reports edema, Reports high blood pressure - Gastrointestinal Reports loss of appetite, Denies nausea, Denies vomiting - Genitourinary Genitourinary: Denies dysuria, Denies hematuria Past Medical History Past Medical History: GERD/Reflux, Hypertension, Osteoarthritis (OA) Additional Past Medical History / Comment(s): ARTHRITIS BACK PAIN, HEMORRHOIDS. History of Any Multi-Drug Resistant Organisms: None Reported Past Surgical History: Tubal Ligation Additional Past Surgical History / Comment(s): HEEL SPUR, BREAST REDUCTION. Past Anesthesia/Blood Transfusion Reactions: No Reported Reaction Past Psychological History: No Psychological Hx Reported Smoking Status: Never smoker Past Alcohol Use History: None Reported Past Drug Use History: None Reported - Past Family History Mother Family Medical History: Cancer Additional Family Medical History / Comment(s): FROM COLON CANCER Father Family Medical History: Cancer Additional Family Medical History / Comment(s): LUNG CANCER Sister(s) Family Medical History: Cancer Additional Family Medical History / Comment(s): BREAST CANCER Medications and Allergies Home Medications Medication Instructions Recorded Confirmed Type Acetaminophen Tab [Tylenol Tab] 500 mg PO Q6H PRN 07/20/24 07/20/24 History HYDROmorphone [Dilaudid] 4 mg PO Q4H PRN 07/20/24 07/20/24 History Metoclopramide [Reglan] 10 mg PO TID 07/20/24 07/20/24 History Metoprolol Succinate (ER) [Toprol 50 mg PO DAILY 07/20/24 07/20/24 History Xl] Morphine Sulfate ER [Ms Contin] 30 mg PO Q12HR 07/20/24 07/20/24 History Nystatin 100,000 Unit/ml Susp 5 ml PO QID 07/20/24 07/20/24 History [Mycostatin Oral Susp] Ondansetron [Zofran] 4 mg PO HS PRN 07/20/24 07/20/24 History Ondansetron [Zofran] 4 mg PO TID 07/20/24 07/20/24 History Pantoprazole [Protonix] 40 mg PO DAILY 07/20/24 07/20/24 History Sennosides [Senokot] 17.2 mg PO HS 07/20/24 07/20/24 History dronabinoL [Marinol] 5 mg PO BID 07/20/24 07/20/24 History polyethylene glycoL 3350 [Miralax] 17 gm PO BID 07/20/24 07/20/24 History Allergies Allergy/AdvReac Type Severity Reaction Status Date / Time No Known Allergies Allergy Verified 07/20/24 10:14 Surgical - Exam Vital Signs Temp Pulse Resp BP Pulse Ox 97.7 F 150 H 19 107/62 93 L 07/20/24 06:43 07/20/24 06:43 07/20/24 06:43 07/20/24 06:43 07/20/24 06:43 - General well developed, well nourished, no distress - Respiratory normal respiratory effort - Abdomen Distended, non-tender, no palpable mass. - Psychiatric oriented to time, oriented to person, oriented to place, speech is normal, memory intact Results - Labs 07/21/24 07:29 07/21/24 07:29 Abnormal Lab Results - Last 24 Hours (Table) 07/20/24 07/20/24 07/20/24 Range/Units 07:03 07:03 07:03 WBC 13.0 H (3.8-10.6) k/uL RDW 17.7 H (11.5-15.5) % Neutrophils # 11.4 H (1.3-7.7) k/uL Lymphocytes # 0.9 L (1.0-4.8) k/uL APTT 21.8 L (22.0-30.0) sec Sodium 128 L (137-145) mmol/L Chloride 94 L (98-107) mmol/L BUN 25 H (7-17) mg/dL Creatinine 1.18 H (0.52-1.04) mg/dL Glucose 165 H (74-99) mg/dL Plasma Lactic Acid Rodrigo (0.7-2.0) mmol/L AST 43 H (14-36) U/L Total Protein 5.8 L (6.3-8.2) g/dL Albumin 3.2 L (3.5-5.0) g/dL TSH 5.270 H (0.465-4.680) mIU/L 07/20/24 Range/Units 07:59 WBC (3.8-10.6) k/uL RDW (11.5-15.5) % Neutrophils # (1.3-7.7) k/uL Lymphocytes # (1.0-4.8) k/uL APTT (22.0-30.0) sec Sodium (137-145) mmol/L Chloride (98-107) mmol/L BUN (7-17) mg/dL Creatinine (0.52-1.04) mg/dL Glucose (74-99) mg/dL Plasma Lactic Acid Rodrigo 2.7 H* (0.7-2.0) mmol/L AST (14-36) U/L Total Protein (6.3-8.2) g/dL Albumin (3.5-5.0) g/dL TSH (0.465-4.680) mIU/L Diabetes panel 07/20/24 Range/Units 07:03 Sodium 128 L (137-145) mmol/L Potassium 4.7 (3.5-5.1) mmol/L Chloride 94 L (98-107) mmol/L Carbon Dioxide 27 (22-30) mmol/L BUN 25 H (7-17) mg/dL Creatinine 1.18 H (0.52-1.04) mg/dL Glucose 165 H (74-99) mg/dL Calcium 9.1 (8.4-10.2) mg/dL AST 43 H (14-36) U/L ALT 19 (4-34) U/L Alkaline Phosphatase 106 (38-126) U/L Total Protein 5.8 L (6.3-8.2) g/dL Albumin 3.2 L (3.5-5.0) g/dL Thyroid panel 07/20/24 Range/Units 07:03 TSH 5.270 H (0.465-4.680) mIU/L Calcium panel 07/20/24 Range/Units 07:03 Calcium 9.1 (8.4-10.2) mg/dL Albumin 3.2 L (3.5-5.0) g/dL Pituitary panel 07/20/24 Range/Units 07:03 Sodium 128 L (137-145) mmol/L Potassium 4.7 (3.5-5.1) mmol/L Chloride 94 L (98-107) mmol/L Carbon Dioxide 27 (22-30) mmol/L BUN 25 H (7-17) mg/dL Creatinine 1.18 H (0.52-1.04) mg/dL Glucose 165 H (74-99) mg/dL Calcium 9.1 (8.4-10.2) mg/dL TSH 5.270 H (0.465-4.680) mIU/L Adrenal panel 07/20/24 Range/Units 07:03 Sodium 128 L (137-145) mmol/L Potassium 4.7 (3.5-5.1) mmol/L Chloride 94 L (98-107) mmol/L Carbon Dioxide 27 (22-30) mmol/L BUN 25 H (7-17) mg/dL Creatinine 1.18 H (0.52-1.04) mg/dL Glucose 165 H (74-99) mg/dL Calcium 9.1 (8.4-10.2) mg/dL Total Bilirubin 0.5 (0.2-1.3) mg/dL AST 43 H (14-36) U/L ALT 19 (4-34) U/L Alkaline Phosphatase 106 (38-126) U/L Total Protein 5.8 L (6.3-8.2) g/dL Albumin 3.2 L (3.5-5.0) g/dL - Imaging CT scan - abdomen: report reviewed, image reviewed Assessment and Plan (1) Retention of urine, unspecified Current Visit: Yes Status: Acute Code(s): R33.9 - RETENTION OF URINE, UNSPECIFIED SNOMED Code(s): 635958677 Plan: A Buckley catheter is in place, draining clear yellow urine. Her measured urine output has been poor. I irrigated the catheter and it irrigates easily, with clear return. It is my impression that the bladder scan reading is erroneous, and I suspect the reason for this is ascites. She has significant lower extremity edema and abdominal bloating. Consider repeat CT scan to evaluate for this. Please notify us if we can be of any further assistance. Time with Patient: Greater than 30
--- NOTE | 2024-07-21 13:08 | P.CRDCN ---
History of Present Illness Consult date: 07/21/24 Consult reason: atrial fibrillation Chief complaint: shortness of breath, dizziness History of present illness: History of present illness: Patient is a pleasant 58-year-old female with significant past medical history o f uterine cancer currently undergoing chemotherapy, hypertension, GERD, osteoarthritis, recent diagnosis of pulmonary embolism, status post IVC filter placement at [facility] who presented with worsening shortness of breath and near syncopal episode. 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 EKG was concerning for A-fib and cardiology was consulted. In the ER ER she had hypotension and tachycardia. Reports that she had woken up around 2 AM to use the bathroom and felt significantly short of breath and like she was going to pass out. She does not smoke, drink alcohol, drink caffeine, or use drugs. Family history of grandfather with some heart issues. She also reports concern for possible urinary retention. She denies any chest pain or pressure. EKG and telemetry reviewed and does not show any atrial fibrillation or atrial flutter, shows sinus tachycardia with PACs. REVIEW OF SYSTEMS: No fever or chills. No cough or expectoration. No diaphoresis. Patient denies headache, blurred vision, double vision. Patient denies any stomach discomfort. No nausea, vomiting. No hematochezia. No hematemesis. Denies any black stools or blood in his stools. Denies dysuria or hematuria. No muscle weakness or numbness. No chest pain or pressure. Reports shortness of breath and near syncope. PHYSICAL EXAMINATION: This is a 58-year-old female in no apparent distress at the time of my examination. HEENT: Head is atraumatic, normocephalic. Pupils are equal, round. Sclerae anicteric. Conjunctivae are clear. Mucous membranes of the mouth are moist. Neck is supple. There is no jugular venous distention. No carotid bruit is heard. CHEST EXAMINATION: Lungs are clear to auscultation. No chest wall tenderness is noted on palpation or with deep breathing. HEART EXAMINATION: Heart regular rate and rhythm. S1, S2 heard. No murmurs, gallops or rub. ABDOMEN: Soft, nontender. Bowel sounds are heard. No organomegaly noted. EXTREMITIES: 2+ peripheral pulses with no evidence of peripheral edema and no calf tenderness noted. NEUROLOGIC EXAMINATION: Patient is awake, alert and oriented x3. IMPRESSION AND PLAN: Uterine cancer, currently undergoing chemotherapy treatments Hypertension GERD Osteoarthritis Pulmonary embolism, status post IVC filter, not on anticoagulation Shortness of breath Near syncope Sinus tachycardia with PACs PLAN: No A-fib seen on EKG or monitor, showed sinus tachycardia with PACs. Stop Cardizem drip, continue with metoprolol. Symptoms are concerning for possible new or worsening pulmonary embolism as she has not been on anticoagulation due to vaginal bleeding. Will check CTA PE protocol. Check BNP and trend troponins. Check orthostatic vital signs. She does have minimal urine output, likely related to dehydration. Consider stress testing if she continues to have chest pain. Further recommendations pending patient's course. I am dictating on behalf of Dr. Lee South's history/physical and assessment/plan. Past Medical History Past Medical History: GERD/Reflux, Hypertension, Osteoarthritis (OA) Additional Past Medical History / Comment(s): ARTHRITIS BACK PAIN, HEMORRHOIDS. History of Any Multi-Drug Resistant Organisms: None Reported Past Surgical History: Tubal Ligation Additional Past Surgical History / Comment(s): HEEL SPUR, BREAST REDUCTION. Past Anesthesia/Blood Transfusion Reactions: No Reported Reaction Past Psychological History: No Psychological Hx Reported Smoking Status: Never smoker Past Alcohol Use History: None Reported Past Drug Use History: None Reported - Past Family History Mother Family Medical History: Cancer Additional Family Medical History / Comment(s): FROM COLON CANCER Father Family Medical History: Cancer Additional Family Medical History / Comment(s): LUNG CANCER Sister(s) Family Medical History: Cancer Additional Family Medical History / Comment(s): BREAST CANCER Medications and Allergies Home Medications Medication Instructions Recorded Confirmed Type Acetaminophen Tab [Tylenol Tab] 500 mg PO Q6H PRN 07/20/24 07/20/24 History HYDROmorphone [Dilaudid] 4 mg PO Q4H PRN 07/20/24 07/20/24 History Metoclopramide [Reglan] 10 mg PO TID 07/20/24 07/20/24 History Metoprolol Succinate (ER) [Toprol 50 mg PO DAILY 07/20/24 07/20/24 History Xl] Morphine Sulfate ER [Ms Contin] 30 mg PO Q12HR 07/20/24 07/20/24 History Nystatin 100,000 Unit/ml Susp 5 ml PO QID 07/20/24 07/20/24 History [Mycostatin Oral Susp] Ondansetron [Zofran] 4 mg PO HS PRN 07/20/24 07/20/24 History Ondansetron [Zofran] 4 mg PO TID 07/20/24 07/20/24 History Pantoprazole [Protonix] 40 mg PO DAILY 07/20/24 07/20/24 History Sennosides [Senokot] 17.2 mg PO HS 07/20/24 07/20/24 History dronabinoL [Marinol] 5 mg PO BID 07/20/24 07/20/24 History polyethylene glycoL 3350 [Miralax] 17 gm PO BID 07/20/24 07/20/24 History Allergies Allergy/AdvReac Type Severity Reaction Status Date / Time No Known Allergies Allergy Verified 07/20/24 10:14 Physical Exam Vitals: Vital Signs Temp Pulse Pulse Resp BP BP Pulse Ox 07/21/24 11:55 98 20 105/75 96 07/21/24 08:00 98.2 F 96 18 107/73 95 07/21/24 04:00 97.8 F 103 H 19 112/74 96 07/21/24 02:00 106 H 19 07/21/24 00:00 98.0 F 104 H 19 105/72 95 07/20/24 20:00 98.2 F 97 19 116/78 96 07/20/24 16:00 96 16 110/69 98 07/20/24 14:45 20 07/20/24 14:41 98.1 F 104 H 16 102/67 96 07/20/24 13:45 98.2 F 109 H 16 144/96 100 07/20/24 13:05 106 H 16 129/81 99 Intake and Output 07/20/24 07/21/24 07/21/24 22:59 06:59 14:59 Intake Total 805 81.167 0 Output Total 25 30 100 Balance 780 51.167 -100 Intake: Intake, IV Titration 325 81.167 Amount Diltiazem 125 mg In 81.167 Sodium Chloride 0.9% 100 ml @ 5 MG/HR 5 mls/hr IV .Q24H [facility] Rx#:[id number] Sodium Chloride 0.9% 1, 325 000 ml @ 50 mls/hr IV . Q20H [facility] Rx#:[id number] Oral 480 0 Output: Urine 25 30 100 Other: Voiding Method Indwelling Catheter Indwelling Catheter Results 07/21/24 07:29 07/21/24 07:29 CBC 07/21/24 Range/Units 07:29 WBC 10.6 (3.8-10.6) k/uL RBC 3.36 L (3.80-5.40) m/uL Hgb 10.0 L (11.4-16.0) gm/dL Hct 30.6 L (34.0-46.0) % Plt Count 380 (150-450) k/uL Comprehensive Metabolic Panel 07/21/24 Range/Units 07:29 Sodium 128 L (137-145) mmol/L Potassium 4.6 (3.5-5.1) mmol/L Chloride 101 (98-107) mmol/L Carbon Dioxide 24 (22-30) mmol/L BUN 27 H (7-17) mg/dL Creatinine 1.23 H (0.52-1.04) mg/dL Glucose 100 H (74-99) mg/dL Calcium 8.3 L (8.4-10.2) mg/dL Current Medications Generic Name Dose Route Start Last Admin Trade Name Freq PRN Reason Stop Dose Admin Acetaminophen 500 mg 07/20/24 14:34 Acetaminophen Tab 500 Mg Tab PO Q6H PRN Pain Dronabinol 5 mg 07/20/24 21:00 07/21/24 08:06 Dronabinol 2.5 Mg Cap PO 5 mg BID [facility] Administration Hydromorphone HCl 4 mg 07/20/24 15:25 Hydromorphone 2 Mg Tab PO Q4H PRN Pain Diltiazem HCl 125 mg/ Sodium 125 mls @ 5 mls/hr 07/20/24 07:15 07/20/24 23:49 Chloride IV 5 mg/hr .Q24H [facility] 5 mls/hr Administration 5 MG/HR Sodium Chloride 1,000 mls @ 50 mls/hr 07/20/24 10:30 07/21/24 06:11 Saline 0.9% IV 50 mls/hr .Q20H [facility] Administration Metoprolol Succinate 50 mg 07/20/24 14:45 07/21/24 08:06 Metoprolol Succinate (Er) 50 Mg Tab.Er.24h PO 50 mg DAILY [facility] Administration Morphine Sulfate 30 mg 07/20/24 16:15 07/21/24 04:15 Morphine Sulfate Er 30 Mg Tablet PO 30 mg Q12H [facility] Administration Protocol Naloxone HCl 0.2 mg 07/20/24 10:17 Naloxone 0.4 Mg/Ml 1 Ml Vial IV Q2M PRN Opioid Reversal Pantoprazole Sodium 40 mg 07/21/24 09:00 07/21/24 08:06 Pantoprazole 40 Mg Tablet PO 40 mg DAILY [facility] Administration Senna 17.2 mg 07/20/24 21:00 07/20/24 20:05 Sennosides 8.6 Mg Tab PO Not Given HS [facility] Intake and Output 07/20/24 07/21/24 07/21/24 22:59 06:59 14:59 Intake Total 805 81.167 0 Output Total 25 30 100 Balance 780 51.167 -100 Intake: Intake, IV Titration 325 81.167 Amount Diltiazem 125 mg In 81.167 Sodium Chloride 0.9% 100 ml @ 5 MG/HR 5 mls/hr IV .Q24H [facility] Rx#:[id number] Sodium Chloride 0.9% 1, 325 000 ml @ 50 mls/hr IV . Q20H [facility] Rx#:[id number] Oral 480 0 Output: Urine 25 30 100 Other: Voiding Method Indwelling Catheter Indwelling Catheter 07/21/24 07:29 07/21/24 07:29
--- NOTE | 2024-07-21 15:54 | US ---
EXAMINATION TYPE: US abdomen limited DATE OF EXAM: 07/21/2024 COMPARISON: NONE CLINICAL INDICATION: Female, 58 years old with history of assess for ascites. Uterine CA; assess for ascites Trace amount of free fluid seen in all 4 quadrants IMPRESSION: 1. Minimal free fluid within the abdomen.
--- NOTE | 2024-07-21 18:56 | CT ---
CTA CHEST EXAMINATION TYPE: CT chest angio for PE DATE OF EXAM: 07/21/2024 INDICATION: SOB; Recent history of PE, Not on thinners CT DLP: 302.6 mGycm, Automated exposure control for dose reduction was used. CONTRAST: Patient injected with 100 ml mL of Isovue 370. COMPARISON: TECHNIQUE: CT of the chest is performed on a spiral scan at 2 mm thick sections. Study is performed with intravenous contrast timed for evaluation for pulmonary embolism. This will limit additional po rtions of the evaluation. 3-D MIP images reconstructed by the technologist are reviewed on the compu ter in the coronal and sagittal planes. FINDINGS: There is a pulmonary embolism within the lingular pulmonary artery. Small pulmonary embolism be in th e right lower lobe. These do not appear easily identified on the comparison study. Report was called to the floor at the time of final interpretation No mediastinal or hilar adenopathy enlarged by CT criteria is evident. The ascending aorta diameter at the level of the main pulmonary artery is 3.4 cm. The main pulmonary artery diameter at the bifurcation is 3.1 cm. Small bilateral pleural effusions are present. There is a triangular consolidation in the right upper lobe. Limited CT sections were through the upper abdomen. Ascites is present. IMPRESSION: 1. Acute pulmonary emboli bilaterally.
[2024-07-21] MEDS ORDERED: HEPARIN SODIUM 1,000 UN/ML (10ML VL) IV PRN (19:04)
[2024-07-21 21:08] LABS: Anisocytosis Slight; Basophils % (A) 0 %; Eosinophils % (A) 0 %; HCT 31.6 % (34.0-46.0); HGB 10.1 gm/dL (11.4-16.0); Hypochromasia Marked; Lymphocytes # (A) 0.9 k/uL (1.0-4.8); Lymphocytes % (A) 7 %; MCH 29.3 pg (25.0-35.0); MCHC 31.9 g/dL (31.0-37.0); MCV 91.6 fL (80.0-100.0); Mean Platelet Volume 7.8; Monocytes # (A) 0.5 k/uL (0-1.0); Monocytes % (A) 4 %; Neutrophils # (A) 10.4 k/uL (1.3-7.7); Neutrophils % (A) 87 %; Platelet Count 483 k/uL (150-450); RBC 3.44 m/uL (3.80-5.40); RDW 17.7 % (11.5-15.5)
[2024-07-21 21:28] LABS: INR 1.3 (<1.2); Partial Thromboplastin Time 25.7 sec (22.0-30.0); Prothrombin Time 13.4 sec (10.0-12.5)
--- NOTE | 2024-07-21 22:54 | P.PN ---
Subjective Progress Note Date: 07/21/24 Patient is a 58-year-old female with a past medical history of uterine cancer currently undergoing chemotherapy. 3 weeks for past 9 weeks., Hypertension, GERD and osteoarthritis presents to ER with complaints of generalized weakness and shortness of breath started this morning. Patient was recently diagnosed with pulmonary embolism. Due to vaginal bleeding patient underwent radiation therapy. Patient was not on anticoagulation due to bleeding and is status post IVC filter placement at [facility]. Otherwise denied any complaints of chest pain. No nausea vomiting. No dizziness or lightheadedness. Denied any palpitations. Apparently patient has not been having much appetite and was placed on Marinol. Yesterday she also took Pedialyte due to dehydration. Denied any fever or chills. No cough or sputum production. In the ER EKG showed atrial fibrillation/flutter with rapid ventricular response and heart rate went up to 150s. Chest x-ray showed small linear opacity left lung base. Correlate for atelectasis or early pneumonia. Small posterior pleural effusions. Laboratory data showed WBC 13.0 hemoglobin 11.4 and platelets 450 sodium 128 potassium 4.7 chloride 94 bicarb is 27 BUN 25 and creatinine 1.18 and blood sugar 165 lactic acid 2.7 AST 43 ALT 19 alk phos 106 and troponin x 1 negative albumin 3.2 TSH 5.27 and free T4 level is 1.98. Patient was started on Cardizem drip in the ER. 07/21/2024 Patient is lying in the bed. Awake alert and oriented. Currently requiring 2 L oxygen via nasal cannula. Patient is still having chest tightness and shortness of breath. No cough or sputum production. No fever no chills. Patient has issues with urinary retention status post Buckley catheter. Patient also has minimal urine output. Cardizem drip has been discontinued and patient will be continued on metoprolol. Heart rate is fairly controlled. CT angiogram was ordered due to elevated troponin level. Patient does have history of recent PE but not on anticoagulation due to vaginal bleeding. Status post IVC postplacement. Laboratory data showed WBC 12.0 hemoglobin 10.1 and platelets 483 RDW 17.7 and sodium 128 potassium 4.6 chloride 101 bicarb is 24 BUN 27 creatinine 1.23. Cardiology and urology is on board. Current medications reviewed. Objective - Vital Signs Vital signs: Vital Signs Temp 98.0 F 07/21/24 16:34 Pulse 103 H 07/21/24 16:34 Resp 18 07/21/24 16:34 BP 103/72 07/21/24 16:34 Pulse Ox 96 07/21/24 16:34 FiO2 Intake & Output 07/21/24 07/21/24 07/22/24 06:59 18:59 06:59 Intake Total 81.167 0 240 Output Total 30 100 200 Balance 51.167 -100 40 Intake: Intake, IV Titration 81.167 Amount Diltiazem 125 mg In 81.167 Sodium Chloride 0.9% 100 ml @ 5 MG/HR 5 mls/hr IV .Q24H ON LICENSE OF [facility] Rx#:[id number] Oral 0 240 Output: Urine 30 100 200 Other: Voiding Method Indwelling Catheter Indwelling Catheter # Voids 1 - Exam PHYSICAL EXAMINATION: Patient is lying in the bed. No acute distress, awake alert and oriented. Patient is weak and lethargic.. HEENT: Normocephalic. Neck is supple. Pupils reactive. Nostrils clear. Oral cavity is moist. Neck reveals no JVD, carotid bruits, or thyromegaly. CHEST EXAMINATION: Trachea is central. Symmetrical expansion. Bibasilar diminished sounds. No wheezing nonlabored breathing. CARDIAC: Normal S1, S2 with no gallops. No murmurs. Irregularly irregular rhythm. ABDOMEN: Soft. Bowel sounds present. Abdominal distention.. No organomegaly. No abdominal bruits. Extremities: Bilateral lower extremity 2+ edema. No clubbing or cyanosis Neurologically awake, alert, oriented x3 with well-coordinated movements. No focal deficits noted Skin: No rash or skin lesions. Psychiatric: Coperative. Nonsuicidal Musculoskeletal: No joint swelling or deformity. Normal range of motion. - Labs CBC & Chem 7: 07/21/24 20:03 07/21/24 07:29 Labs: Abnormal Lab Results - Last 24 Hours (Table) 07/21/24 07/21/24 07/21/24 Range/Units 06:05 07:29 07:29 WBC (3.8-10.6) k/uL RBC 3.36 L (3.80-5.40) m/uL Hgb 10.0 L (11.4-16.0) gm/dL Hct 30.6 L (34.0-46.0) % RDW 18.3 H (11.5-15.5) % Plt Count (150-450) k/uL Neutrophils # 9.4 H (1.3-7.7) k/uL Lymphocytes # 0.7 L (1.0-4.8) k/uL PT (10.0-12.5) sec INR (<1.2) Sodium 128 L (137-145) mmol/L BUN 27 H (7-17) mg/dL Creatinine 1.23 H (0.52-1.04) mg/dL Glucose 100 H (74-99) mg/dL Calcium 8.3 L (8.4-10.2) mg/dL Urine Appearance Cloudy H (Clear) Urine Protein 2+ H (Negative) Urine Blood Large H (Negative) Ur Leukocyte Esterase Moderate H (Negative) Urine RBC 102 H (0-5) /hpf Urine WBC 127 H (0-5) /hpf Urine WBC Clumps Few H (None) /hpf Calcium Oxalate Crystal Occasional H (None) /hpf Urine Bacteria Occasional H (None) /hpf Hyaline Casts 14 H (0-2) /lpf Urine Mucus Many H (None) /hpf 07/21/24 07/21/24 Range/Units 20:03 20:03 WBC 12.0 H (3.8-10.6) k/uL RBC 3.44 L (3.80-5.40) m/uL Hgb 10.1 L (11.4-16.0) gm/dL Hct 31.6 L (34.0-46.0) % RDW 17.7 H (11.5-15.5) % Plt Count 483 H (150-450) k/uL Neutrophils # 10.4 H (1.3-7.7) k/uL Lymphocytes # 0.9 L (1.0-4.8) k/uL PT 13.4 H (10.0-12.5) sec INR 1.3 H (<1.2) Sodium (137-145) mmol/L BUN (7-17) mg/dL Creatinine (0.52-1.04) mg/dL Glucose (74-99) mg/dL Calcium (8.4-10.2) mg/dL Urine Appearance (Clear) Urine Protein (Negative) Urine Blood (Negative) Ur Leukocyte Esterase (Negative) Urine RBC (0-5) /hpf Urine WBC (0-5) /hpf Urine WBC Clumps (None) /hpf Calcium Oxalate Crystal (None) /hpf Urine Bacteria (None) /hpf Hyaline Casts (0-2) /lpf Urine Mucus (None) /hpf Microbiology - Last 24 Hours (Table) 07/20/24 07:59 Blood Culture - Preliminary Blood Assessment and Plan Assessment: New onset atrial fibrillation/flutter with RVR Shortness of breath Recent pulmonary embolism status post IVC filter placement. Currently not on anticoagulation due to vaginal bleeding from uterine malignancy. Patient is also status post radiation. Uterine cancer currently on chemotherapy last about 2 and half weeks ago. Next chemotherapy on Mild leukocytosis Hypovolemic hyponatremia Acute kidney injury likely prerenal Lactic acidosis due to tissue hypoperfusion Elevated TSH level with normal free T4 level. DVT prophylaxis with SCDs Plan: Patient will continue on telemonitoring. Cardizem drip has been discontinued. Patient will be continued on metoprolol. Patient will be started back on home dose of Toprol-XL 50 mg daily. Currently not on anticoagulation due to recent history of bleeding. Repeat CTA chest was ordered. Cardiology is on board. Continue gentle IV hydration and follow-up BMP. Patient was started back on pain medications including MS Contin and Dilaudid as needed. Encourage oral intake. Follow-up closely. Prognosis is guarded. Time with Patient: Greater than 30
[2024-07-22 09:46] LABS: African American GFR (CKD) 35 (>60 ml/min/1.73 sqM); Anion Gap 8 mmol/L; Blood Urea Nitrogen 32 mg/dL (7-17); Calcium 8.5 mg/dL (8.4-10.2); Carbon Dioxide 19 mmol/L (22-30); Chloride 99 mmol/L (98-107); Glucose 118 mg/dL (74-99); Non-African American GFR(CKD) 31 (>60 ml/min/1.73 sqM); Potassium 5.1 mmol/L (3.5-5.1); Sodium 126 mmol/L (137-145)
[2024-07-22 09:50] LABS: Anisocytosis Slight; Basophils % (A) 0 %; Eosinophils % (A) 0 %; HCT 33.3 % (34.0-46.0); HGB 10.2 gm/dL (11.4-16.0); Hypochromasia Moderate; Lymphocytes # (A) 0.7 k/uL (1.0-4.8); Lymphocytes % (A) 5 %; MCHC 30.8 g/dL (31.0-37.0); MCV 94.2 fL (80.0-100.0); Macrocytosis Slight; Mean Platelet Volume 8.3; Monocytes # (A) 0.3 k/uL (0-1.0); Monocytes % (A) 3 %; Neutrophils # (A) 11.9 k/uL (1.3-7.7); Neutrophils % (A) 91 %; Platelet Count 538 k/uL (150-450); RBC 3.53 m/uL (3.80-5.40); RDW 18.3 % (11.5-15.5); WBC 13.1 k/uL (3.8-10.6)
[2024-07-22] MEDS: HEPARIN SODIUM 1,000 UN/ML (10ML VL) IV ONE (11:18)
[2024-07-22] MEDS: HEPARIN SOD,PORK IN 0.45% NACL 25,000 UNIT in 0.45% NACL 1 250ML.BAG IV SCH (11:19)
[2024-07-22 11:31] VITALS: TEMP 97.7
[2024-07-22 11:53] LABS: Glucose,Whole Blood 124 mg/dL (70-110)
--- NOTE | 2024-07-22 12:49 | P.PN ---
Subjective HISTORY OF PRESENT ILLNESS: Patient is a pleasant 58-year-old female with significant past medical history of uterine cancer currently undergoing chemotherapy, hypertension, GERD, osteoarthritis, recent diagnosis of pulmonary embolism, status post IVC filter placement at [facility] who presented with worsening shortness of breath and near syncopal episode. 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 EKG was concerning for A-fib and cardiology was consulted. In the ER ER she had hypotension and tachycardia. Reports that she had woken up around 2 AM to use the bathroom and felt significantly short of breath and like she was going to pass out. She does not smoke, drink alcohol, drink caffeine, or use drugs. Family history of grandfather with some heart issues. She also reports concern for possible urinary retention. She denies any chest pain or pressure. EKG and telemetry reviewed and does not show any atrial fibrillation or atrial flutter, shows sinus tachycardia with PACs. 07/22/2024 Patient is resting comfortably in bed. Patient denies complaints of chest pain or shortness of breath. Telemetry reveals sinus tachycardia. PHYSICAL EXAM: VITAL SIGNS: Reviewed. GENERAL: Well-developed in no acute distress. NECK: Supple. No JVD or thyromegaly LUNGS: Respirations even and unlabored. Lungs essentially clear to auscultation bilaterally. HEART: Mildly tachycardic. Regular rate and rhythm. S1 and S2 heard. EXTREMITIES: Normal range of motion. No clubbing or cyanosis. Peripheral pulses intact. No lower extremity edema ASSESSMENT: Uterine cancer, currently undergoing chemotherapy treatments Hypertension GERD Osteoarthritis Pulmonary embolism, status post IVC filter, not on anticoagulation Shortness of breath Near syncope Sinus tachycardia with PACs, atrial fibrillation ruled out PLAN: Patient currently not on anticoagulation due to vaginal bleeding. Will defer decision for anticoagulation to primary medicine. Stress testing not indicated at this time Continue current cardiac medications No further inpatient recommendations from a cardiac standpoint We will sign off. Please reconsult if needed. Nurse practitioner note has been reviewed by physician. Signing provider agrees with the documented findings, assessment, and plan of care documented by URBAN RENEWAL MANAGER as a scribe. Objective - Vital Signs Vital signs: Vital Signs Temp 97.7 F 07/22/24 11:30 Pulse 106 H 07/22/24 11:30 Resp 18 07/22/24 11:30 BP 92/69 07/22/24 11:30 Pulse Ox 94 L 07/22/24 11:30 FiO2 Intake & Output 07/21/24 07/22/24 07/22/24 18:59 06:59 18:59 Intake Total 0 240 75 Output Total 100 300 Balance -100 -60 75 Weight 109.5 kg Intake: Oral 0 240 75 Output: Urine 100 300 Other: Voiding Method Indwelling Catheter Indwelling Catheter Indwelling Catheter # Voids 1 - Labs CBC & Chem 7: 07/22/24 09:09 07/22/24 09:09 Labs: Abnormal Lab Results - Last 24 Hours (Table) 07/21/24 07/21/24 07/22/24 Range/Units 20:03 20:03 09:09 WBC 12.0 H 13.1 H (3.8-10.6) k/uL RBC 3.44 L 3.53 L (3.80-5.40) m/uL Hgb 10.1 L 10.2 L (11.4-16.0) gm/dL Hct 31.6 L 33.3 L (34.0-46.0) % MCHC 30.8 L (31.0-37.0) g/dL RDW 17.7 H 18.3 H (11.5-15.5) % Plt Count 483 H 538 H (150-450) k/uL Neutrophils # 10.4 H 11.9 H (1.3-7.7) k/uL Lymphocytes # 0.9 L 0.7 L (1.0-4.8) k/uL PT 13.4 H (10.0-12.5) sec INR 1.3 H (<1.2) Sodium (137-145) mmol/L Carbon Dioxide (22-30) mmol/L BUN (7-17) mg/dL Creatinine (0.52-1.04) mg/dL Glucose (74-99) mg/dL POC Glucose (mg/dL) (70-110) mg/dL 07/22/24 07/22/24 Range/Units 09:09 11:52 WBC (3.8-10.6) k/uL RBC (3.80-5.40) m/uL Hgb (11.4-16.0) gm/dL Hct (34.0-46.0) % MCHC (31.0-37.0) g/dL RDW (11.5-15.5) % Plt Count (150-450) k/uL Neutrophils # (1.3-7.7) k/uL Lymphocytes # (1.0-4.8) k/uL PT (10.0-12.5) sec INR (<1.2) Sodium 126 L (137-145) mmol/L Carbon Dioxide 19 L (22-30) mmol/L BUN 32 H (7-17) mg/dL Creatinine 1.78 H (0.52-1.04) mg/dL Glucose 118 H (74-99) mg/dL POC Glucose (mg/dL) 124 H (70-110) mg/dL Microbiology - Last 24 Hours (Table) 07/21/24 06:05 Urine Culture - Final Urine,Voided 07/20/24 07:59 Blood Culture - Preliminary Blood
[2024-07-22 14:05] VITALS: BMI 38.9
--- NOTE | 2024-07-22 14:10 | US ---
EXAMINATION TYPE: US venous doppler duplex LE BI DATE OF EXAM: 07/22/2024 12:03 PM COMPARISON: NONE CLINICAL INDICATION: Female, 58 years old with history of PE, baseline dopplers; PE, SOB, leg swellin g SIDE PERFORMED: Bilateral TECHNIQUE: The lower extremity deep venous system is examined utilizing real time linear array sonog liss with graded compression, doppler sonography and color-flow sonography. VESSELS IMAGED: Common Femoral Vein Deep Femoral Vein Greater Saphenous Vein * Femoral Vein Popliteal Vein Small Saphenous Vein * Proximal Calf Veins (* superficial vessels) Right Leg: Positive for DVT within visualized vessels from groin to upper calf veins, mid and distal femoral veins not visualized due to edema, pt unable to tolerate compression views upper leg Left Leg: Positive for DVT within popliteal veins, pt unable to tolerate compression views upper leg IMPRESSION: 1. Right lower extremity positive for extensive DVT from the groin down into the upper calf as imaged . Limited visualization of the lower third thigh due to soft tissue edema. 2. Left lower extremity positive for popliteal vein DVT.
[2024-07-22] MEDS: ONDANSETRON 4 MG/2 ML VIAL IVP PRN (15:26)
[2024-07-22 16:43] LABS: Glucose,Whole Blood 136 mg/dL (70-110)
--- NOTE | 2024-07-22 17:40 | P.CONS ---
History of Present Illness - Reason for Consult Consult date: 07/22/24 uterine cancer Requesting physician: Mamadou Shin - Chief Complaint weakness - History of Present Illness Patient is a 58-year-old female with a significant history of uterine cancer. Patient follows with Dr. Caron Mendoza at [facility]. She previously underwent palliative radiation due to uterine bleeding and is currently on chemotherapy and received her second cycle approximately 2 weeks ago. Patient does not know what chemo she is on, but likely carbo/Taxol. She reports since starting treatment vaginal bleeding has significantly improved, and is only having intermittent scant vaginal bleeding. She presented to the emergency room with complaints of progressing weakness, dizziness and shortness of breath. Of note patient was recently diagnosed with bilateral PEs however due to vaginal bleeding at that time anticoagulation was contraindicated and IVC filter was placed. Upon admission chest x-ray showed small linear opacity of the left lung base. Small posterior pleural effusions. Abdominal ultrasound showed minimal free fluid within the abdomen. CTA chest showed acute pulmonary emboli bilaterally. Heparin drip was ordered but patient declined anticoagulation till she spoke with hematology. Labs reviewed, WBC 12.0, hemoglobin 10.1, platelets 483,000. Sodium 128. Creatinine 1.23, GFR 48. Urine culture and blood cultures negative thus far. Patient is afebrile and hemodynamically stable. Review of Systems 10 point ROS is negative except as stated in the HPI Past Medical History Past Medical History: GERD/Reflux, Hypertension, Osteoarthritis (OA) Additional Past Medical History / Comment(s): ARTHRITIS BACK PAIN, HEMORRHOIDS. History of Any Multi-Drug Resistant Organisms: None Reported Past Surgical History: Tubal Ligation Additional Past Surgical History / Comment(s): HEEL SPUR, BREAST REDUCTION. Past Anesthesia/Blood Transfusion Reactions: No Reported Reaction Past Psychological History: No Psychological Hx Reported Smoking Status: Never smoker Past Alcohol Use History: None Reported Past Drug Use History: None Reported - Past Family History Mother Family Medical History: Cancer Additional Family Medical History / Comment(s): FROM COLON CANCER Father Family Medical History: Cancer Additional Family Medical History / Comment(s): LUNG CANCER Sister(s) Family Medical History: Cancer Additional Family Medical History / Comment(s): BREAST CANCER Medications and Allergies Home Medications Medication Instructions Recorded Confirmed Type Acetaminophen Tab [Tylenol Tab] 500 mg PO Q6H PRN 07/20/24 07/20/24 History HYDROmorphone [Dilaudid] 4 mg PO Q4H PRN 07/20/24 07/20/24 History Metoclopramide [Reglan] 10 mg PO TID 07/20/24 07/20/24 History Metoprolol Succinate (ER) [Toprol 50 mg PO DAILY 07/20/24 07/20/24 History Xl] Morphine Sulfate ER [Ms Contin] 30 mg PO Q12HR 07/20/24 07/20/24 History Nystatin 100,000 Unit/ml Susp 5 ml PO QID 07/20/24 07/20/24 History [Mycostatin Oral Susp] Ondansetron [Zofran] 4 mg PO HS PRN 07/20/24 07/20/24 History Ondansetron [Zofran] 4 mg PO TID 07/20/24 07/20/24 History Pantoprazole [Protonix] 40 mg PO DAILY 07/20/24 07/20/24 History Sennosides [Senokot] 17.2 mg PO HS 07/20/24 07/20/24 History dronabinoL [Marinol] 5 mg PO BID 07/20/24 07/20/24 History polyethylene glycoL 3350 [Miralax] 17 gm PO BID 07/20/24 07/20/24 History Apixaban [Eliquis Starter Pack 5 - 10 mg PO DIRECTED 30 Days 07/22/24 Rx (for VTE)] #1 each Allergies Allergy/AdvReac Type Severity Reaction Status Date / Time No Known Allergies Allergy Verified 07/20/24 10:14 Physical Exam Vitals: Vital Signs Temp Pulse Resp BP Pulse Ox 07/22/24 11:30 97.7 F 106 H 18 92/69 94 L 07/22/24 08:28 98.7 F 116 H 20 107/73 96 07/22/24 04:24 114 H 17 100/70 93 L 07/21/24 23:50 105 H 18 94/66 97 07/21/24 20:15 97.7 F 105 H 18 105/76 98 07/21/24 16:34 98.0 F 103 H 18 103/72 96 07/21/24 14:00 98 20 Intake and Output 07/21/24 07/22/24 07/22/24 22:59 06:59 14:59 Intake Total 240 75 Output Total 200 100 Balance 40 -100 75 Intake: Oral 240 75 Output: Urine 200 100 Other: Voiding Method Indwelling Catheter Indwelling Catheter Indwelling Catheter # Voids 1 Weight 109.5 kg - Constitutional General appearance: no acute distress, obese - EENT Eyes: anicteric sclerae, EOMI ENT: hearing grossly normal - Respiratory Respiratory: bilateral: diminished - Cardiovascular +1 BLE edema Rhythm: regular - Gastrointestinal General gastrointestinal: soft, no tenderness - Integumentary Integumentary: no cyanotic, no jaundiced - Musculoskeletal Musculoskeletal: generalized weakness - Psychiatric Psychiatric: A&O x's 3 Results CBC & Chem 7: 07/22/24 09:09 07/22/24 09:09 Labs: Abnormal Lab Results - Last 24 Hours (Table) 07/21/24 07/21/24 07/22/24 Range/Units 20:03 20:03 09:09 WBC 12.0 H 13.1 H (3.8-10.6) k/uL RBC 3.44 L 3.53 L (3.80-5.40) m/uL Hgb 10.1 L 10.2 L (11.4-16.0) gm/dL Hct 31.6 L 33.3 L (34.0-46.0) % MCHC 30.8 L (31.0-37.0) g/dL RDW 17.7 H 18.3 H (11.5-15.5) % Plt Count 483 H 538 H (150-450) k/uL Neutrophils # 10.4 H 11.9 H (1.3-7.7) k/uL Lymphocytes # 0.9 L 0.7 L (1.0-4.8) k/uL PT 13.4 H (10.0-12.5) sec INR 1.3 H (<1.2) Sodium (137-145) mmol/L Carbon Dioxide (22-30) mmol/L BUN (7-17) mg/dL Creatinine (0.52-1.04) mg/dL Glucose (74-99) mg/dL POC Glucose (mg/dL) (70-110) mg/dL 07/22/24 07/22/24 Range/Units 09:09 11:52 WBC (3.8-10.6) k/uL RBC (3.80-5.40) m/uL Hgb (11.4-16.0) gm/dL Hct (34.0-46.0) % MCHC (31.0-37.0) g/dL RDW (11.5-15.5) % Plt Count (150-450) k/uL Neutrophils # (1.3-7.7) k/uL Lymphocytes # (1.0-4.8) k/uL PT (10.0-12.5) sec INR (<1.2) Sodium 126 L (137-145) mmol/L Carbon Dioxide 19 L (22-30) mmol/L BUN 32 H (7-17) mg/dL Creatinine 1.78 H (0.52-1.04) mg/dL Glucose 118 H (74-99) mg/dL POC Glucose (mg/dL) 124 H (70-110) mg/dL Microbiology - Last 24 Hours (Table) 07/21/24 06:05 Urine Culture - Final Urine,Voided 07/20/24 07:59 Blood Culture - Preliminary Blood Chest x-ray: report reviewed US - abdomen: report reviewed Assessment and Plan (1) Pulmonary embolism Current Visit: Yes Status: Acute Priority: High Code(s): I26.99 - OTHER PULMONARY EMBOLISM WITHOUT ACUTE COR PULMONALE SNOMED Code(s): 24406122 (2) Endometrial carcinoma Current Visit: Yes Status: Acute Priority: High Code(s): C54.1 - MALIGNANT NEOPLASM OF ENDOMETRIUM SNOMED Code(s): 338084284 Plan: PE: Patient was recently diagnosed with bilateral PEs however due to vaginal bleeding at that time anticoagulation was contraindicated and IVC filter was placed. -CTA chest showed acute pulmonary emboli bilaterally. Heparin drip was ordered but patient declined anticoagulation till she spoke with hematology -Since RT/chemo, vaginal bleeding significantly improved. Only having intermittent scant bleeding -Recommend starting heparin drip, and monitor pt for next 24 hours for any s/s of bleeding and CBC rechecks. If stable, can transition to DOAC -Eliquis sent to [facility]. Case management consulted for prior auth -BLE dopplers ordered for baseline Uterine carcinoma: -Follows with Dr. Mendoza at [facility] -Completed palliative RT. Currently on chemotherapy and received her second cycle approximately 2 weeks ago. Patient does not know what chemo she is on, but likely Carbo/Taxol. -Counts stable. WBC 12.0, hemoglobin 10.1, platelets 483,000. -Patient will f/u with her primary oncologist upon discharge for continuation of oncological care attests: I have seen and examined patient, performed H&P, developed impression and plan of care. Discussed with dictator. Agree with d ocumentation, dictated as a scribe
[2024-07-22] MEDS: ALPRAZolam 0.25 MG TAB PO PRN (18:36)
[2024-07-22 20:26] LABS: Glucose,Whole Blood 130 mg/dL (70-110)
[2024-07-22 20:57] VITALS: BP 170/93; PULSE 128; RESP 24
[2024-07-22] MEDS ORDERED: EPINEPHrine 10 ML SYRINGE (0.1 MG/ML) ONE (23:35)
[2024-07-22] MEDS ORDERED: ATROPINE SULFATE 0.1 MG/ML 10ML SYRINGE ONE (23:35)
[2024-07-22] MEDS ORDERED: AMIODARONE 50 MG/ML 3 ML VIAL IV ONE (23:35)
[2024-07-22] MEDS ORDERED: DEXTROSE 5% IN WATER 100 ML BAG IV ONE (23:35)
[2024-07-22 23:47] LABS: Glucose,Whole Blood 175 mg/dL (70-110)
[2024-07-23] MEDS ORDERED: AMIODARONE 360 MG in DEXTROSE 5% IN WATER 200 ML IV ONE (00:02)
[2024-07-23] MEDS ORDERED: AMIODARONE 450 MG in DEXTROSE 5% IN WATER 250 ML IV SCH (06:01)
--- NOTE | 2024-07-23 10:37 | CA ---
Transthoracic Echo Report Name: Delicia Ball Age: 58 Gender: F : 1965 Exam Date: 07/22/2024 11:59 Exam Location: [facility] Ht (in): 66 Wt (lb): 250 Ordering Physician: Fatmata Lucas Attending/Referring Phys: Regional Marketing Manager Susanne Grover RDCS Procedure CPT: Indications: sob Cardiac Hx: Technical Quality: Technically difficult study Contrast 1: Definity Total Dose (mL): 2 Contrast 2: Total Dose (mL): MEASUREMENTS (Male / Female) Normal Values 2D ECHO LV Diastolic Diameter PLAX 3.7 cm 4.2 - 5.9 / 3.9 - 5.3 cm LV Systolic Diameter PLAX 2.3 cm IVS Diastolic Thickness 1.2 cm 0.6 - 1.0 / 0.6 - 0.9 cm LVPW Diastolic Thickness 1.2 cm 0.6 - 1.0 / 0.6 - 0.9 cm LV Relative Wall Thickness 0.6 RV Internal Dim ED PLAX 3.1 cm LA Systolic Diameter LX 3.4 cm 3.0 - 4.0 / 2.7 - 3.8 cm M-MODE Aortic Root Diameter MM 3.2 cm AV Cusp Separation MM 2.2 cm DOPPLER AV Peak Velocity 106.9 cm/s AV Peak Gradient 4.6 mmHg MV Area PHT 7.3 cm??? Mitral E Point Velocity 83.5 cm/s Mitral A Point Velocity 52.8 cm/s Mitral E to A Ratio 1.6 MV Deceleration Time 103.8 ms TR Peak Velocity 333.5 cm/s TR Peak Gradient 44.5 mmHg Right Ventricular Systolic Press 47.8 mmHg FINDINGS Left Ventricle Left ventricular ejection fraction is estimated at 55-60 %. Small left ventricular cavity. Mildly increased septal wall thickness. Mildly increased posterior wall thickness. No obvious regional wall motion abnormalities. Right Ventricle Right ventricle not well visualized. Moderate pulmonary hypertension. Right Atrium Right atrium not well visualized. Left Atrium Normal left atrial size. Mitral Valve Mitral valve not well visualized. No mitral stenosis. No mitral regurgitation. Aortic Valve Trileaflet aortic valve. Tricuspid Valve Structurally normal tricuspid valve. Mild tricuspid regurgitation. Pulmonic Valve Structurally normal pulmonic valve. Mild pulmonic regurgitation. Pericardium No pericardial effusion. Aorta Normal size aortic root and proximal ascending aorta. CONCLUSIONS This is a technically difficult study. Echo contrast was used. LV systolic function is normal. Right-sided pressures are elevated but the Doppler signal envelope is suboptimal. No pericardial effusion. Minimal mitral regurgitation. Previewed by: Dr. Jared Smith MD (Electronically Signed) Final Date: 23 July 2024 10:37
--- NOTE | 2024-07-23 13:47 | P.PN ---
Subjective Progress Note Date: 07/22/24 Patient is a 58-year-old female with a past medical history of uterine cancer currently undergoing chemotherapy. 3 weeks for past 9 weeks., Hypertension, GERD and osteoarthritis presents to ER with complaints of generalized weakness and shortness of breath started this morning. Patient was recently diagnosed with pulmonary embolism. Due to vaginal bleeding patient underwent radiation therapy. Patient was not on anticoagulation due to bleeding and is status post IVC filter placement at [facility]. Otherwise denied any complaints of chest pain. No nausea vomiting. No dizziness or lightheadedness. Denied any palpitations. Apparently patient has not been having much appetite and was placed on Marinol. Yesterday she also took Pedialyte due to dehydration. Denied any fever or chills. No cough or sputum production. In the ER EKG showed atrial fibrillation/flutter with rapid ventricular response and heart rate went up to 150s. Chest x-ray showed small linear opacity left lung base. Correlate for atelectasis or early pneumonia. Small posterior pleural effusions. Laboratory data showed WBC 13.0 hemoglobin 11.4 and platelets 450 sodium 128 potassium 4.7 chloride 94 bicarb is 27 BUN 25 and creatinine 1.18 and blood sugar 165 lactic acid 2.7 AST 43 ALT 19 alk phos 106 and troponin x 1 negative albumin 3.2 TSH 5.27 and free T4 level is 1.98. Patient was started on Cardizem drip in the ER. 07/21/2024 Patient is lying in the bed. Awake alert and oriented. Currently requiring 2 L oxygen via nasal cannula. Patient is still having chest tightness and shortness of breath. No cough or sputum production. No fever no chills. Patient has issues with urinary retention status post Buckley catheter. Patient also has minimal urine output. Cardizem drip has been discontinued and patient will be continued on metoprolol. Heart rate is fairly controlled. CT angiogram was ordered due to elevated troponin level. Patient does have history of recent PE but not on anticoagulation due to vaginal bleeding. Status post IVC postplacement. Laboratory data showed WBC 12.0 hemoglobin 10.1 and platelets 483 RDW 17.7 and sodium 128 potassium 4.6 chloride 101 bicarb is 24 BUN 27 creatinine 1.23. Cardiology and urology is on board. 07/22/2024 Patient is lying the bed. Awake alert and oriented. Still having shortness of breath and chest tightness. Currently requiring 2 L oxygen via nasal cannula. CTA chest showed acute pulmonary embolism bilaterally. 2D echocardiogram done which showed technically difficult study. LV systolic function is normal. Right-sided pressures are elevated but the Doppler signal and likely suboptimal. No pericardial effusion. Minimal MR. Patient is being current on anticoagulation with heparin drip. Hemoglobin has been stable. Denied any active vaginal bleeding. Blood sugar is controlled. Patient does have minimal oral intake. Continued on gentle IV hydration. Lab data showed WBC 12.0 hemoglobin 10.1 and platelets 483 INR 1.3 sodium 126 potassium 5.1 chloride 99 bicarb is 19 BUN 3020 creatinine 1.78 and blood sugar 118. Patient is on Buckley catheter. Minimal urine output. proBNP 198. Troponin x 1 negative. Patient is on metoprolol. Heart rate is around 106. Cardiology, urology and oncology is on board. Current medications reviewed. Objective - Vital Signs Vital signs: Vital Signs Temp 97.7 F 07/22/24 20:00 Pulse 128 H 07/22/24 20:00 Resp 24 07/22/24 20:00 BP 170/93 07/22/24 20:00 Pulse Ox 97 07/22/24 20:00 FiO2 Intake & Output 07/22/24 07/22/24 07/23/24 06:59 18:59 06:59 Intake Total 240 150 156.832 Output Total 300 Balance -60 150 156.832 Weight 109.5 kg 109.5 kg Intake: Intake, IV Titration 156.832 Amount Heparin Sod,Pork in 0.45% 156.832 NaCl 25,000 unit In 0.45 % NaCl 1 250ml.bag @ 18 UNITS/KG/HR 20.412 mls/hr IV .[id number] [facility] Rx#: [id number] Oral 240 150 Output: Urine 300 Other: Voiding Method Indwelling Catheter Indwelling Catheter # Voids 1 - Exam PHYSICAL EXAMINATION: Patient is lying in the bed. No acute distress, awake alert and oriented. Patient is weak and lethargic.. HEENT: Normocephalic. Neck is supple. Pupils reactive. Nostrils clear. Oral cavity is moist. Neck reveals no JVD, carotid bruits, or thyromegaly. CHEST EXAMINATION: Trachea is central. Symmetrical expansion. Bibasilar diminished sounds, scattered coarse sounds.. No wheezing nonlabored breathing. CARDIAC: Normal S1, S2 with no gallops. No murmurs. Irregularly irregular rhythm. ABDOMEN: Soft. Bowel sounds present. Abdominal distention.. No organomegaly. No abdominal bruits. Extremities: Bilateral lower extremity 2+ edema. No clubbing or cyanosis Neurologically awake, alert, oriented x3 with well-coordinated movements. No focal deficits noted Skin: No rash or skin lesions. Psychiatric: Coperative. Nonsuicidal Musculoskeletal: No joint swelling or deformity. Normal range of motion. - Labs CBC & Chem 7: 07/22/24 09:07/22/24 09:09 Labs: Abnormal Lab Results - Last 24 Hours (Table) 07/22/24 07/22/24 07/22/24 Range/Units 09: 09:09 11:52 WBC 13.1 H (3.8-10.6) k/uL RBC 3.53 L (3.80-5.40) m/uL Hgb 10.2 L (11.4-16.0) gm/dL Hct 33.3 L (34.0-46.0) % MCHC 30.8 L (31.0-37.0) g/dL RDW 18.3 H (11.5-15.5) % Plt Count 538 H (150-450) k/uL Neutrophils # 11.9 H (1.3-7.7) k/uL Lymphocytes # 0.7 L (1.0-4.8) k/uL APTT (22.0-30.0) sec Sodium 126 L (137-145) mmol/L Carbon Dioxide 19 L (22-30) mmol/L BUN 32 H (7-17) mg/dL Creatinine 1.78 H (0.52-1.04) mg/dL Glucose 118 H (74-99) mg/dL POC Glucose (mg/dL) 124 H (70-110) mg/dL 07/22/24 07/22/24 07/22/24 Range/Units 16:42 17:43 20:24 WBC (3.8-10.6) k/uL RBC (3.80-5.40) m/uL Hgb (11.4-16.0) gm/dL Hct (34.0-46.0) % MCHC (31.0-37.0) g/dL RDW (11.5-15.5) % Plt Count (150-450) k/uL Neutrophils # (1.3-7.7) k/uL Lymphocytes # (1.0-4.8) k/uL APTT >200.0 H* (22.0-30.0) sec Sodium (137-145) mmol/L Carbon Dioxide (22-30) mmol/L BUN (7-17) mg/dL Creatinine (0.52-1.04) mg/dL Glucose (74-99) mg/dL POC Glucose (mg/dL) 136 H 130 H (70-110) mg/dL Microbiology - Last 24 Hours (Table) 07/20/24 07:59 Blood Culture - Preliminary Blood 07/21/24 06:05 Urine Culture - Final Urine,Voided Assessment and Plan Assessment: New onset atrial fibrillation/flutter with RVR Acute pulmonary embolism. Duplex scan showed DVT bilateral lower extremities. Acute kidney injury likely prerenal Acute urine retention status post Buckley catheter placement Recent pulmonary embolism status post IVC filter placement. Currently not on anticoagulation due to vaginal bleeding from uterine malignancy. Patient is also status post radiation. Uterine cancer currently on chemotherapy last about 2 and half weeks ago. Next chemotherapy on Mild leukocytosis Hypovolemic hyponatremia Acute kidney injury likely prerenal Lactic acidosis due to tissue hypoperfusion Elevated TSH level with normal free T4 level. DVT prophylaxis with SCDs Plan: Patient will continue on telemonitoring. Cardizem drip has been discontinued. Patient will be continued on metoprolol. Patient will be started back on home dose of Toprol-XL 50 mg daily. Currently not on anticoagulation due to recent history of bleeding. Patient is status post radiation treatment and currently no active vaginal bleeding. Patient was started on anticoagulation with IV heparin. Monitor renal function closely. BMP. Patient was started back on pain medications including MS Contin and Dilaudid as needed. Encourage oral intake. Follow-up closely. Prognosis is guarded at this time. Time with Patient: Greater than 30
--- NOTE | 2024-09-03 12:53 | CDI ---
Documentation Clarification Form Date: 09/03/2024 12:08:49 PM From: Malena Price RN, CCDS Phone: [phone] Admit Date: 07/20/2024 10:17:00 AM Patient Name: Delicia Ball Visit Number: [id number] Discharge Date: 07/23/2024 01:00:00 AM ATTENTION: The Clinical Documentation Specialists (CDI) and [facility] Coding Staff appreciate your assistance in clarifying documentation. Please respond to the clarification below the line at the bottom and electronically sign. The CDI & [facility] Coding staff will review the response and follow-up if needed. Please note: Queries are made part of the Legal Health Record. If you have any questions, please contact the author of this message via ITS. Doctor Mamadou Shin The patient had tachycardia, leukocytosis, DILLAN and Acidosis. Based on this information and the findings below, is there an additional diagnosis that is clinically appropriate for this patient? History/Risk Factors: Pulmonary embolism, s/p IVC, Uterine Ca, currently undergoing chemotherapy, HTN, GERD and osteoarthritis. Presented with generalized weakness and shortness of breath. Admitted with new onset atrial fibrillation and pulmonary embolism. Clinical Indicators: ED: "Vital signs upon arrival shows tachycardia." H&P: "Mild leukocytosis. Acute kidney injury likely prerenal. Lactic acidosis due to tissue hypo perfusion." 07/22 Cardiology: "Sinus tachycardia with PACs, atrial fibrillation ruled out." 07/20-07/22 WBC: 13.0-10.6-12.0-13.1 07/20-07/22 Neutrophils: 11.4-9.4-10.4-11.9 07/20-07/22 Cr: 1.18-1.23-1.78 07/20 Lactic acid: 2.7-1.9 07/20 Vital signs: HR [id number], BP 107/62-66/27-59/31 Treatment: 2L 0.9 NS IV bolus on 07/20 then 75mL/hr; Toprol XL 50mg daily 07/20-07/22; Cardizem drip 07/20-07/21 Is there an additional diagnosis that is clinically appropriate for this patient? [ x ] Non-infectious SIRS causing DILLAN and lactic acidosis [ ] Non-infectious SIRS not causing DILLAN and lactic acidosis [ ] No additional diagnosis/not clinically significant [ ] Other, please specify [ ] Unable to determine SIRS Criteria: 2 or more of the following may indicate SIRS Temperature < 96.8F (36C) or > 101.0F (38.3C) Heart Rate > 90 bpm Respiratory Rate > 20 breaths/min or PaCO2 < 32 mmHg White Blood Cell Count > 12,000 or < 4,000 cells/mm3 or > 10% bands MTDD
--- NOTE | 2024-09-03 13:06 | CDI ---
Documentation Clarification Form Date: 09/03/2024 12:54:04 PM From: Malena Price RN, CCDS Phone: [phone] Admit Date: 07/20/2024 10:17:00 AM Patient Name: Delicia Ball Visit Number: [id number] Discharge Date: 07/23/2024 01:00:00 AM ATTENTION: The Clinical Documentation Specialists (CDI) and [facility] Coding Staff appreciate your assistance in clarifying documentation. Please respond to the clarification below the line at the bottom and electronically sign. The CDI & [facility] Coding staff will review the response and follow-up if needed. Please note: Queries are made part of the Legal Health Record. If you have any questions, please contact the author of this message via ITS. Doctor Mamadou Shin Acute kidney injury is documented in the progress notes. Additional clarification is requested. History/Risk factors: Pulmonary embolism, s/p IVC, Uterine Ca, currently undergoing chemotherapy, HTN, GERD and osteoarthritis. Presented with generalized weakness and shortness of breath. Admitted with new onset atrial fibrillation and pulmonary embolism. Clinical Indicators: ED: "Patient clinical presentation suspicious for dehydration." H&P: "Acute kidney injury likely prerenal." 07/21 Cardiology consult: "She does have minimal urine output, likely related to dehydration." Cr: 1.18-1.23-1.78 07/20-07/22 BUN: 25-27-32 07/20-07/22 GFR: 50-48-31 07/21 Urinalysis: cloudy, large blood, moderate leukocyte esterase, 127 WBC, calcium oxalate crystals, urine bacteria, hyaline casts, urine mucus 07/20 Vital signs: HR [phone], BP 107/62-66/27-59/31 Treatment: 2L 0.9 NS IV bolus on 07/20 then 75mL/hr; Toprol XL 50mg daily 07/20-07/22; Cardizem drip 07/20-07/21 Please clarify the diagnosis: [ x ] Acute Kidney Injury with Acute Tubular Necrosis [ ] Acute Kidney Injury with other cause, please specify [ ] Unable to determine [ ] Other, please specify MTDD
--- NOTE | 2024-09-03 13:17 | CDI ---
Documentation Clarification Form Date: 09/03/2024 01:06:37 PM From: Malena Price RN, CCDS Phone: [phone] Admit Date: 07/20/2024 10:17:00 AM Patient Name: Delicia Ball Visit Number: [id number] Discharge Date: 07/23/2024 01:00:00 AM ATTENTION: The Clinical Documentation Specialists (CDI) and [facility] Coding Staff appreciate your assistance in clarifying documentation. Please respond to the clarification below the line at the bottom and electronically sign. The CDI & [facility] Coding staff will review the response and follow-up if needed. Please note: Queries are made part of the Legal Health Record. If you have any questions, please contact the author of this message via ITS. Doctor Mamadou Shin Conflicting documentation has been found in the medical record. As attending physician, please provide clarification. 07/20 H&P: "New onset atrial fibrillation/flutter with RVR." 07/21 Cardiology consult: "EKG and telemetry reviewed and does not show any atrial fibrillation or atrial flutter, shows sinus tachycardia with PACs." History/Risk Factors: Pulmonary embolism, s/p IVC, Uterine Ca, currently undergoing chemotherapy, HTN, GERD and osteoarthritis. Presented with generalized weakness and shortness of breath. Admitted with new onset atrial fibrillation and pulmonary embolism. Clinical Indicators: 07/20 H&P: "New onset atrial fibrillation/flutter with RVR." 07/21 Cardiology consult: "EKG and telemetry reviewed and does not show any atrial fibrillation or atrial flutter, shows sinus tachycardia with PACs." 07/22 Cardiology: "Sinus tachycardia with PAC's, atrial fibrillation ruled out." 07/20 HR: [id number] 07/20 EKG @06:52: Atrial flutter/tachycardia with RVR 07/20 EKG @16:23: Sinus tachycardia Treatment: 2L 0.9 NS IV bolus on 07/20 then 75mL/hr; Toprol XL 50mg daily 07/20-07/22; Cardizem drip 07/20-07/21 Please clarify which diagnosis is most appropriate: [ ] New onset atrial fibrillation/flutter with RVR [ x ] Sinus tachycardia with PAC's [ ] Other (please specify) [ ] Unable to determine MTDD
--- NOTE | 2024-10-13 12:59 | P.DS ---
Providers Date of admission: 07/20/24 10:17 Expected date of discharge: 07/23/24 Attending physician: Jose Maria Ku Consults: 07/20/24 10:17 Consult Physician Routine Consulting Provider: Wilton Waterman Consult Reason/Comments: unable to void/retention. Do you want consulting provider notified?: Yes 07/21/24 19:02 Consult Physician Routine Consulting Provider: Isidro Lucero Consult Reason/Comments: Active Uterine Cancer. Bilteral PE with hx uterine bleeding. Do you want consulting provider notified?: Yes 07/23/24 00:05 Consult Physician Stat Consulting Provider: Devin Bravo Consult Reason/Comments: ICU, code blue 07/23 Do you want consulting provider notified?: Yes Primary care physician: Marline Jim Hospital Course: diagnosis Acute pulmonary embolism. Duplex scan showed DVT bilateral lower extremities. New onset atrial fibrillation/flutter with RVR Uterine cancer currently on chemotherapy Acute kidney injury likely prerenal Acute urine retention status post Buckley catheter placement Recent pulmonary embolism status post IVC filter placement. Currently not on anticoagulation due to vaginal bleeding from uterine malignancy. Patient is also status post radiation. Uterine cancer currently on chemotherapy last about 2 and half weeks ago. Next chemotherapy on Mild leukocytosis Hypovolemic hyponatremia Acute kidney injury likely prerenal Lactic acidosis due to tissue hypoperfusion Elevated TSH level with normal free T4 level. DVT prophylaxis with SCDs Hospital course Patient is a 58-year-old female with a past medical history of uterine cancer currently undergoing chemotherapy. 3 weeks for past 9 weeks., Hypertension, GERD and osteoarthritis presents to ER with complaints of generalized weakness and shortness of breath started this morning. Patient was recently diagnosed with pulmonary embolism. Due to vaginal bleeding patient underwent radiation therapy. Patient was not on anticoagulation due to bleeding and is status post IVC filter placement at [facility]. Otherwise denied any complaints of chest pain. No nausea vomiting. No dizziness or lightheadedness. Denied any palpitations. Apparently patient has not been having much appetite and was placed on Marinol. Yesterday she also took Pedialyte due to dehydration. Denied any fever or chills. No cough or sputum production. In the ER EKG showed atrial fibrillation/flutter with rapid ventricular response and heart rate went up to 150s. Chest x-ray showed small linear opacity left lung base. Correlate for atelectasis or early pneumonia. Small posterior pleural effusions. Laboratory data showed WBC 13.0 hemoglobin 11.4 and platelets 450 sodium 128 potassium 4.7 chloride 94 bicarb is 27 BUN 25 and creatinine 1.18 and blood sugar 165 lactic acid 2.7 AST 43 ALT 19 alk phos 106 and troponin x 1 negative albumin 3.2 TSH 5.27 and free T4 level is 1.98. Patient was started on Cardizem drip in the ER. 07/21/2024 Patient is lying in the bed. Awake alert and oriented. Currently requiring 2 L oxygen via nasal cannula. Patient is still having chest tightness and shortness of breath. No cough or sputum production. No fever no chills. Patient has issues with urinary retention status post Buckley catheter. Patient also has minimal urine output. Cardizem drip has been discontinued and patient will be continued on metoprolol. Heart rate is fairly controlled. CT angiogram was ordered due to elevated troponin level. Patient does have history of recent PE but not on anticoagulation due to vaginal bleeding. Status post IVC postplacement. Laboratory data showed WBC 12.0 hemoglobin 10.1 and platelets 483 RDW 17.7 and sodium 128 potassium 4.6 chloride 101 bicarb is 24 BUN 27 creatinine 1.23. Cardiology and urology is on board. 07/22/2024 Patient is lying the bed. Awake alert and oriented. Still having shortness of breath and chest tightness. Currently requiring 2 L oxygen via nasal cannula. CTA chest showed acute pulmonary embolism bilaterally. 2D echocardiogram done which showed technically difficult study. LV systolic function is normal. Right-sided pressures are elevated but the Doppler signal and likely suboptimal. No pericardial effusion. Minimal MR. Patient is being current on anticoagulation with heparin drip. Hemoglobin has been stable. Denied any active vaginal bleeding. Blood sugar is controlled. Patient does have minimal oral intake. Continued on gentle IV hydration. Lab data showed WBC 12.0 hemoglobin 10.1 and platelets 483 INR 1.3 sodium 126 potassium 5.1 chloride 99 bicarb is 19 BUN 3020 creatinine 1.78 and blood sugar 118. Patient is on Buckley catheter. Minimal urine output. proBNP 198. Troponin x 1 negative. Patient is on metoprolol. Heart rate is around 106. Cardiology, urology and oncology is on board. 07/23/2024 Overnight A team called at 2335 for altered mental status. RN reported that patient vomited and began guppy breathing. Patient then became unresponsive and bradycardic. At 2337 Code luis carlos called. she was post intubation. Please refer to CODE BLUE sheet. Could not regain pulse. Patient was pronounced. Time of : 00:08 Patient Condition at Discharge: Fair Plan - Discharge Summary Discharge Rx Participant: No New Discharge Prescriptions: New Apixaban [Eliquis Starter Pack (for VTE)] 5 - 10 mg PO DIRECTED 30 Days #1 each No Action Ondansetron [Zofran] 4 mg PO HS PRN PRN Reason: Nausea And Vomiting HYDROmorphone [Dilaudid] 4 mg PO Q4H PRN PRN Reason: Pain polyethylene glycoL 3350 [Miralax] 17 gm PO BID droNABinol [Marinol] 5 mg PO BID Ondansetron [Zofran] 4 mg PO TID Acetaminophen Tab [Tylenol Tab] 500 mg PO Q6H PRN PRN Reason: Pain Sennosides [Senokot] 17.2 mg PO HS Morphine Sulfate ER [Ms Contin] 30 mg PO Q12HR Metoprolol Succinate (ER) [Toprol Xl] 50 mg PO DAILY Pantoprazole [Protonix] 40 mg PO DAILY Metoclopramide [Reglan] 10 mg PO TID Nystatin 100,000 Unit/ml Susp [Mycostatin Oral Susp] 5 ml PO QID Discharge Medication List Acetaminophen Tab [Tylenol Tab] 500 mg PO Q6H PRN 07/20/24 [History] HYDROmorphone [Dilaudid] 4 mg PO Q4H PRN 07/20/24 [History] Metoclopramide [Reglan] 10 mg PO TID 07/20/24 [History] Metoprolol Succinate (ER) [Toprol Xl] 50 mg PO DAILY 07/20/24 [History] Morphine Sulfate ER [Ms Contin] 30 mg PO Q12HR 07/20/24 [History] Nystatin 100,000 Unit/ml Susp [Mycostatin Oral Susp] 5 ml PO QID 07/20/24 [History] Ondansetron [Zofran] 4 mg PO HS PRN 07/20/24 [History] Ondansetron [Zofran] 4 mg PO TID 07/20/24 [History] Pantoprazole [Protonix] 40 mg PO DAILY 07/20/24 [History] Sennosides [Senokot] 17.2 mg PO HS 07/20/24 [History] droNABinol [Marinol] 5 mg PO BID 07/20/24 [History] polyethylene glycoL 3350 [Miralax] 17 gm PO BID 07/20/24 [History] Apixaban [Eliquis Starter Pack (for VTE)] 5 - 10 mg PO DIRECTED 30 Days #1 each 07/22/24 [Rx] Follow up Appointment(s)/Referral(s): Marline Jim DO [Primary Care Provider] - 1-2 days Discharge Disposition: - Preliminary Cause of Preliminary Cause of : Uterine cancer and new onset acute pulmonary embolism
== END 2024-07-23 01:00 | disposition expired | DRG 308 ==
LOC: EC 06:42 → 3SCARD 10:17
PROVIDERS: ADMIT Hospitalist; ATTEND Hospitalist
PROC: 5A12012 Performance of Cardiac Output, Single, Manual (ICD-10-PCS; principal; 2024-07-23)
PROC: 0BH18EZ Insertion of Endotracheal Airway into Trachea, Via Natural or Artificial Opening Endoscopic (ICD-10-PCS; principal; 2024-07-23)
DX: R00.0 Tachycardia, unspecified (principal); I26.99 Other pulmonary embolism without acute cor pulmonale; N17.0 Acute kidney failure with tubular necrosis; R65.11 Systemic inflammatory response syndrome (SIRS) of non-infectious origin with acute organ dysfunction; J90 Pleural effusion, not elsewhere classified; E87.20 Acidosis, unspecified; E87.1 Hypo-osmolality and hyponatremia; I82.491 Acute embolism and thrombosis of other specified deep vein of right lower extremity; I82.411 Acute embolism and thrombosis of right femoral vein; I82.433 Acute embolism and thrombosis of popliteal vein, bilateral; C54.1 Malignant neoplasm of endometrium; E86.0 Dehydration; I95.9 Hypotension, unspecified; I10 Essential (primary) hypertension; Z95.828 Presence of other vascular implants and grafts; D72.829 Elevated white blood cell count, unspecified; E86.1 Hypovolemia; R33.9 Retention of urine, unspecified; K21.9 Gastro-esophageal reflux disease without esophagitis; I49.1 Atrial premature depolarization; R79.89 Other specified abnormal findings of blood chemistry; M19.90 Unspecified osteoarthritis, unspecified site; I46.9 Cardiac arrest, cause unspecified; Z92.21 Personal history of antineoplastic chemotherapy; Z79.899 Other long term (current) drug therapy; Z92.3 Personal history of irradiation
CPT/HCPCS: 36415; 71046; 71275; 76705; 80048; 80053; 81001; 83605; 83735; 83880; 84145; 84439; 84443; 84484; 85025; 85610; 85730; 87040; 87086; 92950; 93005; 93306; 93970; 96365; 96366; 96375; 99291; 99292